=== PATIENT | male | born 1975 | race Caucasian/White ===

== ENCOUNTER 2016-08-08 16:45 | Outpatient (CLI) | payer BC ==
[~2016-08-08 16:45] MED LIST: LISI40TA PO; MECL25TA56 PO
== END 2016-08-08 17:25 | disposition home or self-care (01) ==
LOC: SLEEP 16:45
PROVIDERS: ATTEND Nurse Practitioner Family
DX: R06.83 Snoring (principal); G47.36 Sleep related hypoventilation in conditions classified elsewhere; I10 Essential (primary) hypertension

== ENCOUNTER → 2017-12-26 | Outpatient (CLI) | payer BC ==
--- NOTE | 2017-12-26 13:03 | Diagnostic Imaging Report ---
INDICATION: Increasing left knee pain. TIME OF EXAM: 9:37 AM FINDINGS: Three views of the left knee demonstrate tricompartmental degenerative change. There is marginal spurring present. Joint spaces are fairly well maintained. No fracture, dislocation or effusion is seen. There are postop changes with surgical farshad in the proximal tibia. IMPRESSION: Postop changes of ACL repair. There are degenerative changes of the left knee. No acute bony abnormality is detected. Dictated by: Dictated on workstation # [id number]
== END ==
LOC: RAD 09:04
PROVIDERS: ATTEND Nurse Practitioner Family
DX: M17.12 Unilateral primary osteoarthritis, left knee (principal); Z98.890 Other specified postprocedural states
CPT/HCPCS: 73562

== ENCOUNTER 2019-08-04 15:23 | Emergency (ER) | payer OTHER, BC ==
[~2019-08-04] VITALS: Ht 172.7 cm; Wt 158.7 kg
--- NOTE | 2019-08-04 15:28 | ED Upper Extremity ---
General Stated Complaint: R BICEP INJ Source: patient Exam Limitations: no limitations History of Present Illness Date Seen by Provider: August 04, 2019 Time Seen by Provider: 15:26 Initial Comments To ER with pain over the distal biceps on the right. 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 Onset: this morning Severity: moderate Pain/Injury Location: right arm Method of Injury: other (lifting) Modifying Factors: Worse With Movement Allergies and Home Medications Allergies Coded Allergies: No Known Drug Allergies (Unverified , 09/19/09) Home Medications Lisinopril 40 Mg Tablet, 40 MG PO DAILY, (Reported) Meclizine Hcl 25 Mg Tablet, 1 EACH PO QID PRN Prescribed by: SCOTT CALLOWAY on 09/20/09 0136 Patient Home Medication List Home Medication List Reviewed: Yes Review of Systems Constitutional: see HPI EENTM: see HPI Respiratory: no symptoms reported Cardiovascular: no symptoms reported Genitourinary: no symptoms reported Musculoskeletal: see HPI Skin: no symptoms reported Psychiatric/Neurological: No Symptoms Reported Past [id number]-Czxzka Hx Patient Social History Recent Foreign Travel: No Contact w/Someone Who Travel: No Physical Exam Vital Signs Capillary Refill : Height, Weight, BMI Height: '" Weight: lbs. oz. kg; BMI Method: General Appearance: WD/WN, no apparent distress Respiratory: no respiratory distress, no accessory muscle use Shoulder: normal inspection Elbow/Forearm: normal inspection, non-tender, pain (tender to palpation over the distal biceps tendon, pain with resisted flexion at the elbow.) Wrist: Yes non-tender Neurologic/Tendon: normal sensation Neurologic/Psychiatric: alert, normal mood/affect, oriented x 3 Skin: normal color, warm/dry Departure Impression Primary Impression: Biceps tendon tear Disposition: HOME, SELF-CARE Condition: Stable Departure-Patient Inst. Decision time for Depature: 15:27 Referrals: YAMILKA DALY DO (PCP/Family) Primary Care Physician Patient Instructions: Biceps Tendon Rupture (DC), Biceps Tendinopathy Add. Discharge Instructions: 1. Follow-up with Dr. DALY. Call tomorrow to make an appointment to be seen, wear the sling in the meantime, discuss obtaining an MRI of the upper extremity with Dr. Daly. JENIFER JC APRN August 04, 2019 15:28
--- OUTSIDE RECORDS SUMMARY | 2019-08-04 15:30 | XMS REPORT | CCD ---
Author Author Kaushal Danielle D.O. Organization [facility] Address [address] [place] [address] Phone Care Team Providers Care Operator Automated Process Name Role Phone [facility]ure Danielle D.O., PP Unavailable CCM Unavailable Summary Purpose Interface Exchange Insurance Providers Payer name Policy type / Coverage type Covered green party ID Effective Begin Date Effective End Date Blue Cross Blue Shield Blue Cross/Blue Shield [id number] Unknown Family history Father Diagnosis Age At Onset Diabetes Unknown Brother Diagnosis Age At Onset No Family Disease Entered N/A Mother Diagnosis Age At Onset No Family Disease Entered N/A Social History Social History Element Codes Description Effective Dates Tobacco history SNOMED CT: [id number] Has never smoked or chewed tobacco 07/25/2012 Allergies, Adverse Reactions, Alerts Substance Reaction Codes Entered Date Inactivated Date Status * NO KNOWN ENVIRONMENTAL ALLERGIES Unknown 05/19/2010 N o Inactive Date Active * NO KNOWN DRUG ALLERGIES Unknown 07/27/2009 No Inactiv e Date Active * NO KNOWN FOOD ALLERGIES Unknown 05/19/2010 No Inactiv e Date Active Problems Condition Codes Effective Dates Condition Status Essential (primary) hypertension ICD-9: 401.9 ICD-10: I10 06/27/2019 Active Hyperglycemia, unspecified ICD-9: 790.29 ICD-10: R73.9 12/26/2017 Active Mixed hyperlipidemia ICD-9: 272.2 ICD-10: E78.2 06/27/2019 Active Cellulitis of left lower limb ICD-9: 682.7 ICD-10: L03.116 08/16/2018 Active Methicillin resistant Staphylococcus aureus infection, unspecified site ICD-9: 041.12 ICD-10: A49.02 08/16/2018 Active Cellulitis of left lower limb ICD-9: 682.6 ICD-10: L03.116 08/07/2018 Active Tinea pedis ICD-9: 110.4 ICD-10: B35.3 08/07/2018 Active Mixed hyperlipidemia ICD-9: 272.4 ICD-10: E78.2 12/26/2017 Active Other hyperlipidemia ICD-9: 272.4 ICD-10: E78.49 12/26/2017 Active Pain in left knee ICD-9: 719.46 ICD-10: M25.562 04/13/2017 Active Encounter for general adult medical examination withou t abnormal findings ICD-9: V70.9 ICD-10: Z00.00 04/13/2017 Active FLU VACCINE ICD-9: V04.81 ICD-10: Z23 04/13/2017 Active Obstructive sleep apnea (adult) (pediatric) ICD-9: 327 .23 ICD-10: G47.33 04/13/2017 Active Abnormal weight gain ICD-9: 783.1 ICD-10: R63.5 08/05/2016 Active Sleep apnea, unspecified ICD-9: 780.57 ICD-10: G47.30 08/05/2016 Active Pain in right knee ICD-9: 719.46 ICD-10: M25.561 11/22/2015 Active Acute upper respiratory infection, unspecified ICD-9: 465.9 ICD-10: J06.9 02/14/2016 Active Unspecified contact dermatitis, unspecified cause ICD- 9: 692.9 ICD-10: L25.9 11/03/2015 Active Encounter for other general examination ICD-9: V70.8 ICD-10: Z00.8 08/26/2015 Active DERMATITIS NOS ICD-9: 692.9 10/14/2014 Active FOLLICULITIS ICD-9: 704.8 10/13/2014 Active PAIN, LOWER BACK ICD-9: 724.2 09/03/2014 Active ROUTINE MEDICAL EXAM ICD-9: V70.0 09/03/2014 Active SPASM OF MUSCLE ICD-9: 728.85 12/21/2011 Active COUGH ICD-9: 786.2 07/25/2013 Active SINUSITIS, ACUTE ICD-9: 461.9 07/25/2013 Active WHEEZING ICD-9: 786.07 07/25/2013 Active BRONCHITIS, ACUTE ICD-9: 466.0 01/21/2013 Active Hyperlipidemia ICD-9: 272.4 07/25/2012 Active Foot pain ICD-9: 729.5 01/31/2012 Active LYMPHADENOPATHY ICD-9: 785.6 01/31/2012 Active CERVICALGIA ICD-9: 723.1 12/21/2011 Active ACUTE PAIN NEC ICD-9: 338.19 09/26/2011 Active PHARYNGITIS, ACUTE ICD-9: 462 05/12/2011 Active Thoracic back pain ICD-9: 724.1 02/09/2011 Active Elevated liver enzymes ICD-9: 790.4 08/24/2010 Active Plantar fasciitis ICD-9: 728.71 05/19/2010 Active Tinea pedis ICD-9: 110.4 03/01/2010 Active Tinea versicolor ICD-9: 111.0 10/26/2009 Active DIZZINESS/VERTIGO ICD-9: 780.4 09/22/2009 Active LABYRINTHITIS ICD-9: 386.30 09/22/2009 Active Chronic Back Pain Unknown 07/27/2009 Active Hypertension Unknown 07/27/2009 Active HYPERTENSION ICD-9: 401.9 07/27/2009 Active Medications Medication Codes Instructions Start Date Stop Date Status Fill Instructions lisinopril 20 mg tablet RxNorm: 363797 TAKE ONE TABLET BY MOUTH DAILY 06/27/2019 No Stop Date Active meloxicam 15 mg tablet RxNorm: 968360 1 Tablet(s) Oral QAM 01/25/20 19 04/24/2019 Inactive meloxicam 15 mg tablet RxNorm: 415481 1 Tablet(s) PO QAM 10/05/2018 1 Inactive lisinopril 20 mg tablet RxNorm: 770888 TAKE ONE TABLET BY MOUTH DAILY 09/20/2018 03/18/2019 Inactive dapsone 100 mg tablet RxNorm: 880202 1 Tablet(s) PO QD 08/09/201802/2019 Inactive nystatin-triamcinolone 100,000 unit/g-0.1 % topical cream Rx Norm: 3512865 1 Application TOP BID 08/07/2018 08/20/2018 Inactive Diflucan 150 mg tablet RxNorm: 827748 1 Tablet(s) PO QD 08/07/2018 Inactive Bactrim DS 800 mg-160 mg tablet RxNorm: 799942 1 Tablet(s) PO BID 0 08/07/2018 08/16/2018 Inactive meloxicam 15 mg tablet RxNorm: 456897 1 Tablet(s) PO QAM 06/20/2018 0 09/17/2018 Inactive lisinopril 20 mg tablet RxNorm: 461751 TAKE ONE TABLET BY MOUTH DAILY 06/20/2018 06/19/2018 Inactive meloxicam 15 mg tablet RxNorm: 126037 1 Tablet(s) PO QAM 06/20/2018 0 09/17/2018 Inactive lisinopril 20 mg tablet RxNorm: 989554 1 Tablet(s) PO QD 06/20/2018 0 09/17/2018 Inactive meloxicam 15 mg tablet RxNorm: 916679 1 Tablet(s) PO QAM 05/02/2018 0 06/19/2018 Inactive meloxicam 15 mg tablet RxNorm: 265362 1 Tablet(s) PO QAM 04/30/2018 0 06/19/2018 Inactive cyclobenzaprine 10 mg tablet RxNorm: 837688 1/2 -1 Tabl et(s) PO QHS as needed for muscle spasm 04/11/2018 No Stop Date Active Medrol (Nico) 4 mg tablets in a dose pack RxNorm: 818933 Tablet(s) PO take as directed 04/11/2018 08/06/2018 Inactive Medrol (Nico) 4 mg tablets in a dose pack RxNorm: 294517 Tablet(s) PO take as directed 12/26/2017 04/10/2018 Inactive lisinopril 20 mg tablet RxNorm: 890551 TAKE ONE TABLET BY MOUTH DAILY 12/12/2017 06/09/2018 Inactive meloxicam 15 mg tablet RxNorm: 546274 1 Tablet(s) PO QAM 10/12/2017 0 04/09/2018 Inactive meloxicam 15 mg tablet RxNorm: 481904 Tablet(s) TAKE ON E TABLET BY MOUTH EVERY MORNING 04/13/2017 10/09/2017 Inactive lisinopril 20 mg tablet RxNorm: 511471 1 Tablet(s) PO QD 12/08/2016 0 12/02/2017 Inactive meloxicam 15 mg tablet RxNorm: 618723 Tablet(s) TAKE ON E TABLET BY MOUTH EVERY MORNING 08/05/2016 01/31/2017 Inactive meloxicam 15 mg tablet RxNorm: 785854 Tablet(s) TAKE ON E TABLET BY MOUTH EVERY MORNING 07/12/2016 08/04/2016 Inactive meloxicam 15 mg tablet RxNorm: 323462 TAKE ONE TABLET BY MOUTH EVERY MORNING 06/16/2016 07/11/2016 Inactive Medrol (Nico) 4 mg tablets in a dose pack RxNorm: 396915 Take as directed 06/15/2016 08/04/2016 Inactive amoxicillin 875 mg tablet RxNorm: 230954 1 Tablet(s) PO BID 016 02/24/2016 Inactive Pepcid 20 mg tablet RxNorm: 547898 TAKE ONE TABLET BY MOUTH MARTHA RY MORNING 12/21/2015 04/12/2017 Inactive meloxicam 15 mg tablet RxNorm: 170771 1 Tablet(s) PO QAM 11/23/2015 1 Inactive Pepcid 20 mg tablet RxNorm: 780421 1 Tablet(s) PO QAM 11/23/201512/04 Inactive triamcinolone acetonide 0.1 % topical cream RxNorm: 7014048 Apply topically to affected areas(ankles) 3-4 times daily as needed 11/03/2015 12/25/2017 Inactive Naftin 2 % topical cream RxNorm: 3993648 Apply topically to affected areas(bilateral feet) once daily for 2 weeks 11/03/2015 12/25/2017 Yoanna ctive lisinopril 20 mg tablet RxNorm: 476965 1 Tablet(s) PO QD 11/03/2015 0 10/27/2016 Inactive lisinopril 20 mg tablet RxNorm: 768823 1 Tablet(s) PO QD 10/28/2015 0 11/02/2015 Inactive lisinopril 20 mg tablet RxNorm: 235157 1 Tablet(s) PO Q D Needs appointment before next refill 07/28/2015 08/26/2015 Inactive lisinopril 20 mg tablet RxNorm: 012488 1 Tablet(s) PO Q D Needs appointment before next refill 07/22/2015 07/28/2015 Inactive lisinopril 20 mg tablet RxNorm: 653471 TAKE ONE TABLET BY MOUTH DAILY 04/24/2015 07/22/2015 Inactive Medrol (Nico) 4 mg tablets in a dose pack RxNorm: 292434 Tablet(s) PO QD --then as directed 02/23/2015 02/28/2015 Inactive Ultram 50 mg tablet RxNorm: 807928 1 - 2 Tablet(s) PO T ID as needed as needed for pain 02/23/2015 08/26/2015 Inactive Medrol (Nico) 4 mg tablets in a dose pack RxNorm: 004807 6 Tablet(s) PO QD --then as directed 10/14/2014 10/19/2014 Inactive lisinopril 20 mg tablet RxNorm: 630720 1 Tablet(s) PO Q D TAKE ONE TABLET BY MOUTH ONE TIME A DAY 10/14/2014 04/11/2015 Inactive Bactrim DS 800 mg-160 mg tablet RxNorm: 683052 1 Tablet(s) PO BID 0 10/14/2014 10/23/2014 Inactive lisinopril 20 mg tablet RxNorm: 731177 1 Tablet(s) PO Q D TAKE ONE TABLET BY MOUTH ONE TIME A DAY 10/13/2014 10/13/2014 Inactive Zorvolex 35 mg capsule RxNorm: 5891083 1 Capsule(s) PO TID 09/04/19 15 08/26/2015 Inactive Ultram 50 mg tablet RxNorm: 739634 1 - 2 Tablet(s) PO T ID as needed as needed for pain 09/03/2014 02/22/2015 Inactive Flexeril 10 mg tablet RxNorm: 538839 1 Tablet(s) PO TID prn spasm 0 09/03/2014 08/26/2015 Inactive lisinopril 20 mg tablet RxNorm: 709183 1 Tablet(s) PO Q D TAKE ONE TABLET BY MOUTH ONE TIME A DAY 04/21/2014 10/13/2014 Inactive lisinopril 20 mg tablet RxNorm: 612190 1 Tablet(s) PO Q D TAKE ONE TABLET BY MOUTH EVERY DAY 10/21/2013 04/21/2014 Inactive cefdinir 300 mg capsule RxNorm: 017520 2 Capsule(s) PO QD 07/25/2013 08/03/2013 Inactive prednisone 20 mg tablet RxNorm: 379583 1 Tablet(s) PO BID 07/25/2013 07/31/2013 Inactive lisinopril 20 mg tablet RxNorm: 972961 1 Tablet(s) PO T TAMARA ONE TABLET BY MOUTH EVERY DAY 04/12/2013 10/20/2013 Inactive doxycycline hyclate 100 mg tablet RxNorm: 7672571 1 Tablet(s) PO BI D 01/21/2013 01/30/2013 Inactive albuterol sulfate 2.5 mg/3 mL (0.083 %) solution for n ebulization RxNorm: 081884 3 Milliliter(s) INH QID 01/21/2013 01/30/2013 Inactive lisinopril 20 mg tablet RxNorm: 136950 1 Tablet(s) PO QD 07/09/2012 0 04/12/2013 Inactive metformin ER 500 mg 24 hr tablet,extended release RxNorm: 86 0975 1 Tablet(s) PO QD 02/02/2012 07/24/2012 Inactive metformin ER 500 mg 24 hr tablet,extended release RxNorm: 86 1018 1 Tablet(s) PO QD 02/02/2012 02/01/2012 Inactive Lamisil 250 mg tablet RxNorm: 130716 1 Tablet(s) PO QD 02/02/2012 Inactive Lamisil 250 mg tablet RxNorm: 671032 1 Tablet(s) PO QD 02/02/2012 Inactive Flexeril 10 mg tablet RxNorm: 635972 1 Tablet(s) PO TID prn spasm 1 03/24/2011 07/24/2012 Inactive Ultram 50 mg tablet RxNorm: 547339 1-2 Tablet(s) PO TID as need ed for pain 01/23/2012 07/24/2012 Inactive lisinopril 20 mg tablet RxNorm: 787529 1 Tablet(s) PO QD 09/26/2011 0 06/21/2012 Inactive lisinopril 20 mg Tab RxNorm: 369805 1 Tablet(s) PO QD 06/27/201109/04 Inactive doxycycline hyclate 100 mg tablet RxNorm: 7924410 1 Tablet(s) PO BI D 05/12/2011 05/21/2011 Inactive lisinopril 20 mg Tab RxNorm: 253884 1 Tablet(s) PO QD 12/02/201005/05 Inactive cefdinir 300 mg Cap RxNorm: 605330 2 Capsule(s) PO QD 06/21/201003/2010 Inactive Flexeril 10 mg tablet RxNorm: 260486 1 Tablet(s) PO TID prn spasm 0 05/19/2010 06/01/2010 Inactive lisinopril 20 mg Tab RxNorm: 706397 1 Tablet(s) PO QD 03/01/201008/05 Inactive lisinopril 20 mg Tab RxNorm: 279793 1 Tablet(s) PO QD 10/26/200901/05 Inactive Ketoconazole 200 mg Tab RxNorm: 837006 1 Tablet(s) PO BID 10/26/2009 11/22/2009 Inactive Lisinopril 20 mg Tab RxNorm: 136880 1 Tablet(s) PO QD 10/26/200910/05 Inactive Prednisone 20 mg Tab RxNorm: 913119 1 Tablet(s) PO BID 09/22/2009 Inactive Flexeril 10 mg Tab RxNorm: 511502 1 Tablet(s) PO QHS prn spasm 07/0509/24/2009 Inactive Lisinopril 40 mg Tab RxNorm: 570299 1 Tablet(s) PO QD 07/27/200910/05 Inactive Ibuprofen 200 mg Tab RxNorm: 511063 1-2 Tablet(s) PO PRN No Start D ate 02/08/2011 Inactive Ibuprofen 200 mg Tab RxNorm: 20100411 Tablet(s) PO PRN No Start Date Inactive Medrol (Nico) 4 mg Tabs in a Dose Pack RxNorm: 130134 Tablet(s) PO as directed No Start Date 12/20/2011 Inactive Medrol (Nico) 4 mg tablets in a dose pack RxNorm: 874087 Tablet(s) PO take as directed No Start Date 12/25/2017 Inactive Glucos Chond Cplx Advanced Oral RxNorm: Oral No Start Date 10/05 Inactive Ultram 50 mg tablet RxNorm: 208268 1-2 Tablet(s) PO TID as need ed for pain No Start Date 01/22/2012 Inactive cyclobenzaprine 10 mg tablet RxNorm: 709520 1/2 -1 Tabl et(s) PO QHS as needed for muscle spasm No Start Date 04/10/2018 Inactive Medrol (Nico) 4 mg tablets in a dose pack RxNorm: 697862 Tablet(s) PO take as directed No Start Date 04/10/2018 Inactive Lisinopril 40 mg Tab RxNorm: 399847 1 Tablet(s) PO QD No Start Date 0 07/26/2009 Inactive Lisinopril 40 mg Tab RxNorm: 750982 1/2 Tablet(s) PO QD No Start Da te 10/25/2009 Inactive Restoril 15 mg capsule RxNorm: 346231 1 Capsule(s) PO QHS No Start Date 04/12/2017 Inactive Medication Administered No Medication Administered data Immunizations Vaccine Codes Date Status Influenza CVX: 141 04/13/2017 Complete Influenza (Adult) CVX: 141 12/31/2009 Results Observation Observation Code Item Item Code Result Date S ervice Location THYROID STIMULATING HORMONE 77912 TSH 2.639 uIU/mL 08/07/2018 Unknown [facility] 14414 Cholesterol 200 mg/dL 08/07/2018 Unkno wn [facility] 02396 Triglyceride 110 mg/dL 08/07/2018 Unkn own [facility] 56415 HDL CHOLESTEROL 38 mg/dL 08/07/2018 U nknown [facility] 88978 Chol/HDL Ratio 5.26 ratio 08/07/2018 U nknown [facility] 27946 NON-HDL Chol 162 mg/dL 08/07/2018 Unkn own [facility] 96049 LDL Cholesterol 140 mg/dL 08/07/2018 U nknown COMPREHENSIVE METABOLIC 42228 AST 22 U/L 2018 Unknown COMPREHENSIVE METABOLIC 69833 ALT 34 U/L 2018 Unknown [facility] 54918 BUN 11 mg/dL 2018 Unknown [facility] 09978 ALBUMIN 4.3 g/dL 2018 Unknown [facility] MET[facility]OLIC 89751 CHLORIDE 104 mmol/L 08/07 Unknown COMPREHENSIVE METABOLIC 73806 Bili Total 1.0 mg/dL 08/07 Unknown COMPREHENSIVE METABOLIC 86563 ALK PHOS 57 U/L 2018 Unknown COMPREHENSIVE METABOLIC 95074 SODIUM 139 mmol/L 08/07 Unknown COMPREHENSIVE METABOLIC 29644 CREATININE 0.98 mg/dL 06/2018 Unknown COMPREHENSIVE METABOLIC 25248 CALCIUM 9.1 mg/dL 2018 Unknown COMPREHENSIVE METABOLIC 07463 POTASSIUM 4.0 mmol/L 08/07 Unknown COMPREHENSIVE METABOLIC 73404 Total Protein 6.8 g/dL Unknown COMPREHENS[facility] METABOLIC 49141 Glucose 114 mg/dL 2018 Unknown COMPREHENSIVE METABOLIC 59335 Bicarbonate 27 mmol/L 06/2018 Unknown COMPREHENSIVE METABOLIC 42845 AGAP 8 mmol/L 2018 Unknown MEAN GLUC 9570347 Calc Mean Gluc 117 mg/dL 08/07/2018 Unkn own GFR CALC [id number] GFR Non Afr Amr >60 mL/min 08/07/2018 Un known GFR CALC [id number] GFR Afr Amr >60 mL/min 08/07/2018 Unknow n COMPLETE BLOOD COUNT [id number] WBC 9.1 10e9/L 08/08/19 19 Unknown COMPLETE BLOOD COUNT [id number] RBC 4.91 10e12/L 2018 Unknown COMPLETE BLOOD COUNT [id number] HEMOGLOBIN 15.2 g/dL 08/08/19 19 Unknown COMPLETE BLOOD COUNT [id number] HEMATOCRIT 45.1 % 08/08/19 19 Unknown COMPLETE BLOOD COUNT [id number] MCV 91.9 fL 9 Unknown COMPLETE BLOOD COUNT [id number] MCH 31.0 pg 9 Unknown COMPLETE BLOOD COUNT [id number] MCHC 33.7 g/dL 9 Unknown COMPLETE BLOOD COUNT [id number] PLATELET COUNT 217 10e9/L 06/2018 Unknown COMPLETE BLOOD COUNT [id number] Mean Plt Volume 10.5 fL 06/2018 Unknown COMPLETE BLOOD COUNT [id number] Neut Auto 63.4 % 9 Unknown COMPLETE BLOOD COUNT [id number] Lymph Auto 25.4 % 08/08/19 19 Unknown COMPLETE BLOOD COUNT [id number] Bond Auto 9.4 % 9 Unknown COMPLETE BLOOD COUNT 1979499 RDW 12.8 % 9 Unknown COMPLETE BLOOD COUNT 1489902 Eos Auto 1.5 % 9 Unknown COMPLETE BLOOD COUNT [id number] Baso Auto 0.3 % 9 Unknown COMPLETE BLOOD COUNT [id number] Neutrophil Abs 5.77 10e9/L Unknown COMPLETE BLOOD COUNT [id number] Lymphocyte Abs 2.31 10e9/L Unknown COMPLETE BLOOD COUNT [id number] Monocyte Abs 0.86 10e9/L 06/2018 Unknown COMPLETE BLOOD COUNT [id number] Eosinophil Abs 0.14 10e9/L Unknown COMPLETE BLOOD COUNT [id number] RDW-SD 41.9 fL 9 Unknown COMPLETE BLOOD COUNT [id number] Basophil Abs 0.03 10e9/L 06/0 06/2018 Unknown GLYCOSYLATED HEMOGLOBIN TEST 63638 Hgb A1c 12425-2 5.7 % 0 08/07/2018 Unknown COMPLETE BLOOD COUNT [id number] WBC 8.4 10e9/L 01/31/20 12 Unknown COMPLETE BLOOD COUNT [id number] RBC 4.91 10e12/L 2011 Unknown COMPLETE BLOOD COUNT [id number] HGB 15.6 g/dL 2 Unknown COMPLETE BLOOD COUNT [id number] HCT DET 44.2 % 2 Unknown COMPLETE BLOOD COUNT [id number] MCV 90.0 fL 2 Unknown COMPLETE BLOOD COUNT 0123466 MCH 31.8 pg 2 Unknown COMPLETE BLOOD COUNT [id number] MCHC 35.3 g/dL 2 Unknown COMPLETE BLOOD COUNT 4231979 PLT 231 10e9/L 01/31/20 12 Unknown COMPLETE BLOOD COUNT 1451017 MPV 10.2 fL 2 Unknown COMPLETE BLOOD COUNT [id number] RENY % 60.9 % 2 Unknown COMPLETE BLOOD COUNT 7996394 LY % 26.5 % 2 Unknown COMPLETE BLOOD COUNT [id number] MON % 10.7 % 2 Unknown COMPLETE BLOOD COUNT 7249457 EOS % 1.5 % 2 Unknown COMPLETE BLOOD COUNT 3375108 BASO % 0.4 % 2 Unknown COMPLETE BLOOD COUNT [id number] RDW 12.5 % 2 Unknown COMPLETE BLOOD COUNT [id number] ABS RENY 5.12 10e9/L 012 Unknown COMPLETE BLOOD COUNT [id number] ABS LYMPH 2.23 10e9/L 012 Unknown COMPLETE BLOOD COUNT [id number] ABS MONO 0.90 10e9/L 012 Unknown COMPLETE BLOOD COUNT [id number] ABS EOS 0.13 10e9/L 012 Unknown COMPLETE BLOOD COUNT [id number] ABS BASO 0.03 10e9/L 012 Unknown COMPLETE BLOOD COUNT [id number] RDW-SD 40.5 fL 2 Unknown COMPREHENSIVE METABOLIC 09297 AST 31 U/L 2011 Unknown COMPREHENSIVE METABOLIC 24544 ALT 60 IU/L 2011 Unknown COMPREHENSIVE METABOLIC 80739 BUN 14 MG/DL 2011 Unknown COMPREHENSIVE METABOLIC 04758 ALBUMIN 4.1 GM/DL 2011 Unknown COMPREHENSIVE METABOLIC 26276 CHLORIDE 101 MMOL/L 01/30 Unknown COMPREHENSIVE METABOLIC 61153 BILI TOT 0.8 MG/DL 2011 Unknown COMPREHENSIVE METABOLIC 90831 ALK PHOS 60 U/L 2011 Unknown COMPREHENSIVE METABOLIC 98964 SODIUM 138 MMOL/L 01/30 Unknown COMPREHENSIVE METABOLIC 00045 CREATININE 0.99 MG/DL 01/05 Unknown COMPREHENSIVE METABOLIC 19669 CALCIUM 9.3 MG/DL 2011 Unknown COMPREHENSIVE METABOLIC 60115 POTASSIUM 3.8 MMOL/L 01/30 Unknown COMPREHENSIVE METABOLIC 34936 PROT TOT 6.5 GM/DL 2011 Unknown COMPREHENSIVE METABOLIC 83514 Glucose 108 MG/DL 2011 Unknown COMPREHENSIVE METABOLIC 52544 BICARB 29 MMOL/L 2011 Unknown COMPREHENSIVE METABOLIC 88106 ANION GAP 8 MEQ/L 2011 Unknown URIC ACID 07196 URIC ACID 7.7 MG/DL 01/31/2012 Unknown [facility] 51652 HDL TEST 30 MG/DL 01/31/2012 Unknown [facility] 21438 TRIG 199 MG/DL 01/31/2012 Unknown [facility] 77937 TEST LDL 125 MG/DL 01/31/2012 Unknown [facility] 08034 CHOL 195 MG/DL 01/31/2012 Unknown [facility] 12278 RCHOL/HDL 6.50 RATIO 01/31/2012 Unknow n GFR CALC 3685046 GFR AA >60 ML/MIN 01/31/2012 Unknown GFR CALC 6534029 GFR NON-AA >60 ML/MIN 01/31/2012 Unknown ERYTHROCYTE SEDIMENTATION RATE 24913 ESR 25 MM/HR 01/31/2012 Unknown T4 (THYROXINE) 47213 T4 9.5 UG/DL 02/24/2011 Unkn own COMPLETE BLOOD COUNT 24880 WBC 9.5 10e9/L 02/25/20 11 Unknown COMPLETE BLOOD COUNT 45819 RBC 4.71 10e12/L 2010 Unknown COMPLETE BLOOD COUNT 57549 HGB 14.5 g/dL 1 Unknown COMPLETE BLOOD COUNT 67215 HCT DET 42.2 % 1 Unknown COMPLETE BLOOD COUNT 71411 MCV 89.6 fL 1 Unknown COMPLETE BLOOD COUNT 03150 MCH 30.8 pg 1 Unknown COMPLETE BLOOD COUNT 00291 MCHC 34.4 g/dL 1 Unknown COMPLETE BLOOD COUNT 61559 PLT 193 10e9/L 02/25/20 11 Unknown COMPLETE BLOOD COUNT 13144 MPV 10.7 fL 1 Unknown COMPLETE BLOOD COUNT 79157 RENY % 58.7 % 1 Unknown COMPLETE BLOOD COUNT 40650 LY % 29.0 % 1 Unknown COMPLETE BLOOD COUNT 03937 MON % 10.0 % 1 Unknown COMPLETE BLOOD COUNT 11333 EOS % 1.6 % 1 Unknown COMPLETE BLOOD COUNT 28251 BASO % 0.7 % 1 Unknown COMPLETE BLOOD COUNT 73506 SCAN REVW FOOTNOTE 1 Unknown COMPLETE BLOOD COUNT 57652 RDW 12.5 % 1 Unknown COMPLETE BLOOD COUNT 22476 ABS RENY 5.55 10e9/L 011 Unknown COMPLETE BLOOD COUNT 93233 ABS LYMPH 2.74 10e9/L 011 Unknown COMPLETE BLOOD COUNT 33511 ABS MONO 0.95 10e9/L 011 Unknown COMPLETE BLOOD COUNT 54002 ABS EOS 0.15 10e9/L 011 Unknown COMPLETE BLOOD COUNT 88233 ABS BASO 0.07 10e9/L 011 Unknown COMPLETE BLOOD COUNT 43627 RDW-SD 40.5 fL 1 Unknown [facility] 48809 HDL TEST 34 MG/DL 02/24/2011 Unknown [facility] 37324 TRIG 95 MG/DL 02/24/2011 Unknown [facility] 72498 TEST LDL 95 MG/DL 02/24/2011 Unknown [facility] 66515 CHOL 148 MG/DL 02/24/2011 Unknown [facility] 02542 RCHOL/HDL 4.35 RATIO 02/24/2011 Unknow n COMPREHENSIVE METABOLIC 79522 AST 33 U/L 2010 Unknown COMPREHENSIVE METABOLIC 85933 ALT 64 IU/L 2010 Unknown COMPREHENSIVE METABOLIC 59346 BUN 10 MG/DL 2010 Unknown COMPREHENSIVE METABOLIC 76588 ALBUMIN 3.9 GM/DL 2010 Unknown COMPREHENSIVE METABOLIC 95493 CHLORIDE 105 MMOL/L 02/24 Unknown COMPREHENSIVE METABOLIC 49442 BILI TOT 0.6 MG/DL 2010 Unknown COMPREHENSIVE METABOLIC 91850 ALK PHOS 56 U/L 2010 Unknown COMPREHENSIVE METABOLIC 18170 SODIUM 140 MMOL/L 02/24 Unknown COMPREHENSIVE METABOLIC 05770 CREATININE 0.98 MG/DL 02/04 Unknown COMPREHENSIVE METABOLIC 42807 CALCIUM 8.9 MG/DL 2010 Unknown COMPREHENSIVE METABOLIC 12234 POTASSIUM 3.8 MMOL/L 02/24 Unknown COMPREHENSIVE METABOLIC 69304 PROT TOT 6.7 GM/DL 2010 Unknown COMPREHENSIVE METABOLIC 26042 Glucose 109 MG/DL 2010 Unknown COMPREHENSIVE METABOLIC 43018 BICARB 30 MMOL/L 2010 Unknown COMPREHENSIVE METABOLIC 89211 ANION GAP 5 MEQ/L 2010 Unknown THYROID STIMULATING HORMONE 64023 TSH 1.692 uIU/ML 02/24/2011 Unknown GFR CALC 3506778 GFR AA >60 ML/MIN 02/24/2011 Unknown GFR CALC 9219112 GFR NON-AA >60 ML/MIN 02/24/2011 Unknown HEPATIC FUNCTION PANEL A 92590 AST 25 U/L 08/24 Unknown HEPATIC FUNCTION PANEL A 26665 ALK PHOS 55 U/L 08/24 Unknown HEPATIC FUNCTION PANEL A 31007 BILI TOT 1.0 MG/DL 08/24 Unknown HEPATIC FUNCTION PANEL A 65374 ALT 60 IU/L 08/24 Unknown HEPATIC FUNCTION PANEL A 76273 BILI DIR 0.2 MG/DL 08/24 Unknown HEPATIC FUNCTION PANEL A 36034 ALBUMIN 4.4 GM/DL 08/24 Unknown HEPATIC FUNCTION PANEL A 22355 PROT TOT 7.0 GM/DL 08/24 Unknown VIRAL HEPATITIS PROFILE #2 54341 HEP AG BS NR Unknown VIRAL HEPATITIS PROFILE #2 33901 HEP C AB NR Unknown VIRAL HEPATITIS PROFILE #2 31189 HEP A M AB NR Unknown VIRAL HEPATITIS PROFILE #2 36249 HBC M AB NR Unknown THYROID STIMULATING HORMONE 95289 TSH 3.554 uIU/ML 03/02/2010 Unknown [facility] 65999 HDL TEST 44 MG/DL 03/02/2010 Unknown [facility] 27908 TRIG 141 MG/DL 03/02/2010 Unknown [facility] 14618 TEST LDL 136 MG/DL 03/02/2010 Unknown [facility] 14059 CHOL 208 MG/DL 03/02/2010 Unknown [facility] 27363 RCHOL/HDL 4.73 RATIO 03/02/2010 Unknow n COMPLETE BLOOD COUNT 21422 WBC 9.6 10e9/L 03/02/20 10 Unknown COMPLETE BLOOD COUNT 52118 RBC 5.01 10e12/L 2009 Unknown COMPLETE BLOOD COUNT 09780 HGB 15.3 g/dL 0 Unknown COMPLETE BLOOD COUNT 56840 HCT DET 45.5 % 0 Unknown COMPLETE BLOOD COUNT 19472 MCV 90.8 fL 0 Unknown COMPLETE BLOOD COUNT 77043 MCH 30.5 pg 0 Unknown COMPLETE BLOOD COUNT 14892 MCHC 33.6 g/dL 0 Unknown COMPLETE BLOOD COUNT 56435 PLT 193 10e9/L 03/02/20 10 Unknown COMPLETE BLOOD COUNT 35513 MPV 9.6 fL 0 Unknown COMPLETE BLOOD COUNT 93860 RENY % 59.0 % 0 Unknown COMPLETE BLOOD COUNT 33255 LY % 30.0 % 0 Unknown COMPLETE BLOOD COUNT 94365 MON % 9.5 % 0 Unknown COMPLETE BLOOD COUNT 11712 EOS % 1.3 % 0 Unknown COMPLETE BLOOD COUNT 07549 BASO % 0.2 % 0 Unknown COMPLETE BLOOD COUNT 01128 RDW 12.5 % 0 Unknown COMPLETE BLOOD COUNT 72459 ABS RENY 5.66 10e9/L 010 Unknown COMPLETE BLOOD COUNT 88297 ABS LYMPH 2.88 10e9/L 010 Unknown COMPLETE BLOOD COUNT 92459 ABS MONO 0.91 10e9/L 010 Unknown COMPLETE BLOOD COUNT 28791 ABS EOS 0.12 10e9/L 010 Unknown COMPLETE BLOOD COUNT 77555 ABS BASO 0.02 10e9/L 010 Unknown COMPLETE BLOOD COUNT 96778 RDW-SD 40.9 fL 0 Unknown GFR CALC [id number] GFR AA >60 ML/MIN 03/02/2010 Unknown GFR CALC [id number] GFR NON-AA >60 ML/MIN 03/02/2010 Unknown FREE T4 08432 FREE T4 1.14 NG/DL 03/02/2010 Unknown COMPREHENSIVE METABOLIC 39358 AST 31 U/L 2009 Unknown COMPREHENSIVE METABOLIC 44457 ALT 85 IU/L 2009 Unknown COMPREHENSIVE METABOLIC 58956 BUN 15 MG/DL 2009 Unknown COMPREHENSIVE METABOLIC 04321 ALBUMIN 4.0 GM/DL 2009 Unknown COMPREHENSIVE METABOLIC 85569 CHLORIDE 104 MMOL/L 03/02 Unknown COMPREHENSIVE METABOLIC 31665 BILI TOT 0.5 MG/DL 2009 Unknown COMPREHENSIVE METABOLIC 93955 ALK PHOS 64 U/L 2009 Unknown COMPREHENSIVE METABOLIC 67624 SODIUM 139 MMOL/L 03/02 Unknown COMPREHENSIVE METABOLIC 02350 CREATININE 0.94 MG/DL 02/04 Unknown COMPREHENSIVE METABOLIC 08660 CALCIUM 9.2 MG/DL 2009 Unknown COMPREHENSIVE METABOLIC 70005 POTASSIUM 3.9 MMOL/L 03/02 Unknown COMPREHENSIVE METABOLIC 24254 PROT TOT 6.8 GM/DL 2009 Unknown COMPREHENSIVE METABOLIC 86913 Glucose 102 MG/DL 2009 Unknown COMPREHENSIVE METABOLIC 19684 BICARB 28 MMOL/L 2009 Unknown COMPREHENSIVE METABOLIC 58065 ANION GAP 7 MEQ/L 2009 Unknown Procedures Procedure Codes Date AEROBIC WOUND CULTURE & STN CPT-4: 01964 08/09/2018 CEFTRIAXONE SODIUM INJECTION CPT-4: J0696 08/09/2018 THER/PROPH/DIAG INJ SC/IM CPT-4: 42964 08/09/2018 ROUTINE VENIPUNCTURE CPT-4: 60504 08/07/2018 COMPLETE CBC W/AUTO DIFF WBC CPT-4: 80546 08/07/2018 COMPREHEN METABOLIC PANEL CPT-4: 18790 08/07/2018 ASSAY THYROID STIM HORMONE CPT-4: 36684 08/07/2018 LIPID PANEL CPT-4: 17779 08/07/2018 A1C HPLC CPT-4: 63630 08/07/2018 ROUTINE VENIPUNCTURE CPT-4: 53838 12/26/2017 ASSAY THYROID STIM HORMONE CPT-4: 24040 12/26/2017 COMPREHEN METABOLIC PANEL CPT-4: 05920 12/26/2017 COMPLETE CBC W/AUTO DIFF WBC CPT-4: 23774 12/26/2017 LIPID PANEL CPT-4: 14097 12/26/2017 A1C HPLC CPT-4: 76106 12/26/2017 IIV4 VACCINE 3 YRS+ IM AND UP CPT-4: 77614 04/13/2017 IMMUNIZATION ADMIN CPT-4: 91540 04/13/2017 THER/PROPH/DIAG INJ SC/IM CPT-4: 53155 01/21/2013 METHYLPREDNISOLONE 40 MG INJ CPT-4: J1030 01/21/2013 TRIAMCINOLONE ACET INJ NOS CPT-4: J3301 01/21/2013 URINALYSIS NONAUTO W/O SCOPE CPT-4: 32039 01/31/2012 ROUTINE VENIPUNCTURE CPT-4: 43744 01/31/2012 COMPREHEN METABOLIC PANEL CPT-4: 21705 01/31/2012 COMPLETE CBC W/AUTO DIFF WBC CPT-4: 76753 01/31/2012 RBC SED RATE AUTOMATED CPT-4: 65258 01/31/2012 LIPID PANEL CPT-4: 52336 01/31/2012 ASSAY OF BLOOD/URIC ACID CPT-4: 83485 01/31/2012 ROUTINE VENIPUNCTURE CPT-4: 56204 08/24/2010 HEPATIC FUNCTION PANEL CPT-4: 33127 08/24/2010 C FUNGUS CPT-4: 9154387 03/01/2010 FLU VACCINE 3 YRS & > IM UP 64 CPT-4: 78969 0 IMMUNIZATION ADMIN CPT-4: 38516 12/31/2009 Vital Signs Date Vital 08/16/2018 Blood Pressure 1: 110/85 Code: 8480-6 Heart Rate 1: 55 bpm Respiratory Rate: 20 bpm 08/09/2018 Blood Pressure 1: 150/100 Code: 8480-6 Heart Rat e 1: 71 bpm Respiratory Rate: 20 bpm SpO2: 95% Temperature: 36.3 (C) / 97.3 (F) 08/07/2018 Blood Pressure 1: 150/96 Code: 8480-6 Heart Rate 1: 70 bpm Respiratory Rate: 20 bpm SpO2: 96% Temperature: 36.4 (C) / 97.6 (F) We ight: 351 lbs 12/26/2017 Blood Pressure 1: 130/80 Code: 8480-6 Heart Rate 1: 61 bpm Respiratory Rate: 20 bpm SpO2: 96% Temperature: 35.8 (C) / 96.5 (F) We ight: 345 lbs 04/13/2017 Blood Pressure 1: 138/82 Code: 8480-6 BMI: 52.1 Code: 40598-7 Heart Rate 1: 86 bpm Height: 5'8" Respiratory Rate: 24 bpm SpO2: 98% Tempera ture: 36.4 (C) / 97.6 (F) Weight: 348 lbs 08/05/2016 Blood Pressure 1: 140/78 Code: 8480-6 BMI: 52.4 Code: 76513-4 Heart Rate 1: 94 bpm Height: 5'8" Respiratory Rate: 20 bpm SpO2: 99% Tempera ture: 36.4 (C) / 97.6 (F) Weight: 350 lbs 06/15/2016 Blood Pressure 1: 146/88 Code: 8480-6 Heart Rate 1: 94 bpm Respiratory Rate: 24 bpm SpO2: 97% Temperature: 36.2 (C) / 97.1 (F) We ight: 346 lbs 02/15/2016 Blood Pressure 1: 142/76 Code: 8480-6 BMI: 50.5 Code: 58009-6 Heart Rate 1: 74 bpm Height: 5'8" Respiratory Rate: 24 bpm SpO2: 98% Tempera ture: 36.6 (C) / 97.8 (F) Weight: 337 lbs 11/23/2015 Blood Pressure 1: 142/68 Code: 8480-6 Heart Rate 1: 76 bpm Height: 5'8" Respiratory Rate: 24 bpm SpO2: 99% Temperature: 36.7 (C) / 98.1 (F) Weight: 11/03/2015 Blood Pressure 1: 136/80 Code: 8480-6 Heart Rate 1: 84 bpm Height: Respiratory Rate: 24 bpm SpO2: 98% Temperature: 36.8 (C) / 98.2 (F) We ight: 08/27/2015 Blood Pressure 1: 142/80 Code: 8480-6 BMI: 50.2 Code: 03836-0 Heart Rate 1: 82 bpm Height: 5'8" Respiratory Rate: 18 bpm SpO2: 98% Tempera ture: 36.7 (C) / 98.0 (F) Weight: 335 lbs 10/14/2014 Blood Pressure 1: 142/86 Code: 8480-6 BMI: 48.8 Code: 03612-4 Heart Rate 1: 80 bpm Height: 5'10" Respiratory Rate: 20 bpm Temperature: 36 .9 (C) / 98.4 (F) Weight: 340 lbs 09/03/2014 Blood Pressure 1: 124/80 Code: 8480-6 BMI: 49.6 Code: 83132-3 Heart Rate 1: 84 bpm Height: 5'10" Respiratory Rate: 22 bpm Temperature: 36 .4 (C) / 97.6 (F) Weight: 346 lbs 07/25/2013 Blood Pressure 1: 142/84 Code: 8480-6 BMI: 47.9 Code: 08379-3 Heart Rate 1: 68 bpm Height: 5'10" Respiratory Rate: 20 bpm SpO2: 98% Tempera ture: 36.1 (C) / 97.0 (F) Weight: 334 lbs 01/21/2013 Blood Pressure 1: 126/84 Code: 8480-6 BMI: 46.5 Code: 23924-1 Heart Rate 1: 78 bpm Height: 5'10" Respiratory Rate: 18 bpm Temperature: 36 .3 (C) / 97.4 (F) Weight: 324 lbs 07/25/2012 Blood Pressure 1: 128/68 Code: 8480-6 BMI: 47.9 Code: 90414-2 Heart Rate 1: 80 bpm Height: 5'9" Temperature: 36.6 (C) / 97.9 (F) Weight: 326 lbs 07/10/2012 Blood Pressure 1: 122/72 Code: 8480-6 BMI: 46.7 Code: 92840-9 Heart Rate 1: 78 bpm Height: 5'9" Temperature: 36.1 (C) / 97.0 (F) Weight: 318 lbs 01/31/2012 Blood Pressure 1: 126/86 Code: 8480-6 BMI: 46.7 Code: 20306-8 Heart Rate 1: 80 bpm Height: 5'9" Respiratory Rate: 20 bpm Temperature: 36 .6 (C) / 97.9 (F) Weight: 318 lbs 12/21/2011 Blood Pressure 1: 128/82 Code: 8480-6 BMI: 46.7 Code: 64389-2 Heart Rate 1: 72 bpm Height: 5'9" Respiratory Rate: 20 bpm Temperature: 36 .4 (C) / 97.6 (F) Weight: 318 lbs 09/26/2011 Blood Pressure 1: 138/82 Code: 8480-6 BMI: 46.1 Code: 27036-1 Heart Rate 1: 74 bpm Height: 5'9" Temperature: 36.6 (C) / 97.9 (F) Weight: 314 lbs 05/12/2011 Blood Pressure 1: 130/70 Code: 8480-6 BMI: 46.0 Code: 37126-6 Heart Rate 1: 68 bpm Height: 5'9" Temperature: 36.4 (C) / 97.5 (F) Weight: 313 lbs 02/09/2011 Blood Pressure 1: 124/80 Code: 8480-6 BMI: 46.0 Code: 96236-2 Heart Rate 1: 80 bpm Height: 5'9" Respiratory Rate: 20 bpm Temperature: 36 .8 (C) / 98.2 (F) Weight: 313 lbs 08/24/2010 Blood Pressure 1: 124/72 Code: 8480-6 BMI: 47.3 Code: 53974-9 Heart Rate 1: 68 bpm Height: 5'9" Temperature: 36.2 (C) / 97.1 (F) Weight: 323 lbs 06/21/2010 Blood Pressure 1: 116/82 Code: 8480-6 Heart Rate 1: 72 bpm Temperature: 36.3 (C) / 97.4 (F) Weight: 327 lbs 05/19/2010 Blood Pressure 1: 132/84 Code: 8480-6 BMI: 48.9 Code: 17667-3 Heart Rate 1: 80 bpm Height: 5'9" Temperature: 36.5 (C) / 97.7 (F) Weight: 331 lbs 03/01/2010 Blood Pressure 1: 124/70 Code: 8480-6 Heart Rate 1: 76 bpm Temperature: 36.4 (C) / 97.5 (F) Weight: 330 lbs 10/26/2009 Blood Pressure 1: 124/76 Code: 8480-6 Heart Rate 1: 76 bpm Temperature: 36.5 (C) / 97.7 (F) Weight: 329 lbs 09/22/2009 Blood Pressure 1: 128/76 Code: 8480-6 Bl ood Pressure 2: 112/80 Code: 8480-6 Blood Pressure 3: 114/76 Code: 8480-6 Heart Rate 1: 76 bpm T emperature: 36.8 (C) / 98.2 (F) Weight: 325 lbs 07/27/2009 Blood Pressure 1: 132/94 Code: 8480-6 Heart Rate 1: 84 bpm Temperature: 36.8 (C) / 98.2 (F) Weight: 326 lbs Functional Status No Functional Status data Reason For Visit Reason For Visit Effective Dates Notes follow up 08/16/2018 follow up 08/09/2018 on bite on leg. sores 08/07/2018 Possible insect bite to left ankle knee pain 12/26/2017 left well man exam (40-65 years) 04/13/2017 swelling 08/05/2016 Coworkers and Spouse have observed apneas. Patient would like to proceed with Sleep Study follow up 06/15/2016 cough 02/15/2016 knee pain 11/23/2015 Patient has hx of AC L repair to left knee- has tried ibuprofen PRN. 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 sinus congestion 06/21/2010 with nasal tendernes s foot pain 05/19/2010 No known injury, has pain in arch of left foot x 1 week. Hurts when plantar flexing and walking. Pain intensity is intemittant between uncomfortable and sharp. high blood pressure 03/01/2010 needs a refill of li sinopril 20mg qd rash 10/26/2009 around neck area, no itching, redness/burning, treated previously with betamethasone but didn't help follow up 09/22/2009 ER fwup on dizziness , using meclizine prn high blood pressure 07/27/2009 restarted lisinopril 40mg qd a couple days ago Encounters Encounter Performer Location Codes Date ([id number]) OFFICE/OUTPATIENT VISIT EST Diagnosis: Cellulitis of left lower limb[ICD10: L03.116] Diagnosis: Methicillin resistant Staphylococcus aureus infection, unspecified site[ICD10: A49.02] Diagnosis: Essential (primary) hypertension[ICD10: I10] Jahaira DANIELLE [employer] CPT-4: 91138 08/16/2018 ([id number]) OFFICE/OUTPATIENT VISIT EST Diagnosis: Cellulitis of left lower limb[ICD10: L03.116] Diagnosis: Essential (primary) hypertension[ICD10: I10] Jahaira DANIELLE [employer] [facility] CPT-4: 41413 08/09/2018 ([id number]) OFFICE/OUTPATIENT VISIT EST Diagnosis: Hyperglycemia, unspecified[ICD10: R73.9] Diagnosis: Essential (primary) hypertension[ICD10: I10] Diagnosis: Tinea pedis[ICD10: B35.3] Diagnosis: Cellulitis of left lower limb[ICD10: L03.116] Jahaira DANIELLE [employer] [facility] CPT-4: 71110 08/07/2018 ([id number]) OFFICE/OUTPATIENT VISIT EST Diagnosis: Pain in left knee[ICD10: M25.562] Diagnosis: Essential (primary) hypertension[ICD10: I10] Diagnosis: Other hyperlipidemia[ICD10: E78.49] Diagnosis: Hyperglycemia, unspecified[ICD10: R73.9] Jahaira MAURICE ADELAIDACODIE DANIELLE [employer] CPT-4: 71494 12/26/2017 ([id number]) PREV VISIT EST AGE 40-64 Diagnosis: Encounter for general adult medical examination without abnormal findings[ICD10: Z00.00] Diagnosis: Essential (primary) hypertension[ICD10: I10] Diagnosis: Obstructive sleep apnea (adult) (pediatric)[ICD10: G47.33] Diagnosis: Pain in left knee[ICD10: M25.562] Diagnosis: FLU VACCINE[ICD10: Z23] Jahaira WALKER [employer] CPT-4: 80843 04/13/2017 OFFICE/OUTPATIENT VISIT EST Diagnosis: Sleep apnea, unspecified[ICD10: G47.30] Diagnosis: Abnormal weight gain[ICD10: R63.5] Madelaine ACOSTA Windy [employer] CPT-4: 27245 08/05/2016 ([id number]) OFFICE/OUTPATIENT VISIT EST Diagnosis: Pain in right knee[ICD10: M25.561] Amanda DANIELLE DO [facility] CPT-4: 12607 06/15/2016 ([id number]) OFFICE/OUTPATIENT VISIT EST Diagnosis: Acute upper respiratory infection, unspecified[ICD10: J06.9] Amanda DANIELLE DO [facility] CPT-4: 85536 02/15/2016 ([id number]) OFFICE/OUTPATIENT VISIT EST Diagnosis: Pain in right knee[ICD10: M25.561] Aure DANIELLE DO [facility] CPT-4: 54685 11/23/2015 ([id number]) OFFICE/OUTPATIENT VISIT EST Diagnosis: Essential (primary) hypertension[ICD10: I10] Diagnosis: Unspecified contact dermatitis, unspecified cause[ICD10: L25.9] Diagnosis: Tinea pedis[ICD10: B35.3] Amanda AGUIRRE [facility] CPT-4: 06450 11/03/2015 ([id number]) PREV VISIT EST AGE 40-64 Diagnosis: Encounter for other general examination[ICD10: Z00.8] Amanda DANIELLE DO [facility] CPT-4: 35042 08/27/2015 ([id number]) OFFICE/OUTPATIENT VISIT EST Diagnosis: DERMATITIS NOS[ICD9: 692.9] Diagnosis: FOLLICULITIS[ICD9: 704.8] Aure AGUIRRE DO [facility] CPT-4: 70591 10/14/2014 ([id number]) PREV VISIT EST AGE 40-64 Diagnosis: ROUTINE MEDICAL EXAM[ICD9: V70.0] Diagnosis: PAIN, LOWER BACK[ICD9: 724.2] Diagnosis: SPASM OF MUSCLE[ICD9: 728.85] Nayana DANIELLE DO [facility] CPT-4: 10698 09/03/2014 OFFICE/OUTPATIENT VISIT EST Diagnosis: COUGH[ICD9: 786.2] Diagnosis: WHEEZING[ICD9: 786.07] Diagnosis: SINUSITIS, ACUTE[ICD9: 461.9] Nayana DANIELLE DO [facility] CPT-4: 31042 07/25/2013 OFFICE/OUTPATIENT VISIT EST Diagnosis: COUGH[ICD9: 786.2] Diagnosis: BRONCHITIS, ACUTE[ICD9: 466.0] Nayana Madsen AURE Jasso KENTRELLTIMOTHY [facility] CPT-4: 74629 01/21/2013 ([id number]) PREV VISIT EST AGE 18-39 Diagnosis: ROUTINE MEDICAL EXAM[ICD9: V70.0] Diagnosis: HYPERTENSION[ICD9: 401.9] Diagnosis: Hyperlipidemia[ICD9: 272.4] Aure PANG [facility] CPT-4: 98956 07/25/2012 OFFICE/OUTPATIENT VISIT EST Diagnosis: HYPERTENSION[ICD9: 401.9] Lazara Jonathan Temple [facility] CPT-4: 16445 07/10/2012 OFFICE/OUTPATIENT VISIT EST Diagnosis: LYMPHADENOPATHY[ICD9: 785.6] Diagnosis: Foot pain[ICD9: 729.5] Diagnosis: TINEA PEDIS[ICD9: 110.4] Diagnosis: HYPERTENSION[ICD9: 401.9] Aure AGUIRRE [facility] CPT-4: 84819 01/31/2012 ([id number]) OFFICE/OUTPATIENT VISIT EST Diagnosis: CERVICALGIA[ICD9: 723.1] Diagnosis: SPASM OF MUSCLE[ICD9: 728.85] Aure Temple [facility] CPT-4: 43462 12/21/2011 OFFICE/OUTPATIENT VISIT EST Diagnosis: ACUTE PAIN NEC[ICD9: 338.19] Diagnosis: HYPERTENSION[ICD9: 401.9] Aure AGUIRRE [facility] CPT-4: 35015 09/26/2011 OFFICE/OUTPATIENT VISIT EST Diagnosis: COUGH[ICD9: 786.2] Diagnosis: SINUSITIS, ACUTE[ICD9: 461.9] Diagnosis: PHARYNGITIS, ACUTE[ICD9: 462] Aure Temple [facility] CPT-4: 05554 05/12/2011 OFFICE/OUTPATIENT VISIT EST Diagnosis: HYPERTENSION[ICD9: 401.9] Diagnosis: ELEV TRANSAMINASE/LDH[ICD9: 790.4] Diagnosis: Thoracic back pain[ICD9: 724.1] Aure Temple [facility] CPT-4: 14764 02/09/2011 ([id number]) PREV VISIT EST AGE 18-39 Aure [facility] CPT-4: 99035 08/24/2010 ([id number]) OFFICE/OUTPATIENT VISIT EST Aure [facility] CPT-4: 12116 06/21/2010 ([id number]) OFFICE/OUTPATIENT VISIT EST Aure [facility] CPT-4: 41021 05/19/2010 ([id number]) OFFICE/OUTPATIENT VISIT, EST Aure [facility] CPT-4: 65117 03/01/2010 ([id number]) OFFICE/OUTPATIENT VISIT, EST Aure [facility] CPT-4: 53054 10/26/2009 ([id number]) OFFICE/OUTPATIENT VISIT, EST Aure [facility] CPT-4: 09942 09/22/2009 ([id number]) OFFICE/OUTPATIENT VISIT, EST Aure [facility] CPT-4: 99726 07/27/2009 Plan of Care Planned Activity Notes Codes Status Date Care Plan: COMPREH[place]AB[place]IC [place] : 29216-4 Pending 06/27/2019 Care Plan: LIPID PANEL LOINC : 22802-6 Pending 06/27/2019 Care Plan: A1C HPLC LOINC : 08610-7 Pending 06/27/2019 Visit Diagnosis Plan: Essential (primary) hypertension Discussion: dc bystolic but continue with lisinopril. elevated bp most likely was r/t pain, anxiety, and infection. instructed to monitor bp at work and to call office with readings. ICD-9 : 401.9 ICD-10 : I10 08/16/2018 Visit Diagnosis Plan: Cellulitis of left lower limb Di scussion: much improved with no more swelling. finish out antibiotics and call office if redness continues next week. ICD-9 : 682.7 ICD-10 : L03.116 08/16/2018 Appointment: Jahaira Torres [address] [place], [place] [phone] FOLLOW UP 08/16/2018 Patient Education: High Blood Pressure Co mpleted 08/16/2018 Visit Diagnosis Plan: Essential (primary) hypertension Discussion: sample of bystolic given to patient with instructions on use. discussed with patient that bp may be elevated due to infection and pain but to take bystolic daily and will recheck bp at follow up appt next week. ICD-9 : 401.9 ICD-10 : I10 08/09/2018 Visit Diagnosis Plan: Cellulitis of left lower limb Di scussion: culture obtained in clinic since area appears to be worse than last visit. rocephin injection given in office and instructed patient to complete the bactrim until gone. tylenol/ibuprofen prn pain. dapsone prescribed to cover for brown recluse bite due to appearance of bite and wound. rtc in one week for assessment of wound. call before then if worsens though. ICD-9 : 682.6 ICD-10 : L03.116 08/09/2018 Appointment: Jahaira Torres [address] [facility] FOLLOW UP 08/09/2018 Patient Education: High Blood Pressure Co mpleted 08/09/2018 Visit Diagnosis Plan: Essential (primary) hypertension Discussion: Return for BP check once infection gone. Discussion: Return for BP check ICD-9 : 401.9 ICD-10 : I10 08/07/2018 Visit Diagnosis Plan: Cellulitis of left lower limb Di scussion: bactrim bid for 10 days. call or rtc for new or worsening symptoms. ICD-9 : 682.6 ICD-10 : L03.116 08/07/2018 Visit Diagnosis Plan: Hyperglycemia, unspecified Discu ssion: Check CMP, HbA1C ICD-9 : 790.29 ICD-10 : R73.9 08/07/2018 Visit Diagnosis Plan: Tinea pedis Discussion: Diflucan and topical ointment prescribed to take as directed. keep feet clean and dry and take shoes/socks off as much as possible. purchase socks that wisk away moisture Discussion: Diflucan ICD-9 : 110.4 ICD-10 : B35.3 08/07/2018 Appointment: Jahaira Torres [address] [facility] ACUTE ILLNESS 08/07/2018 Patient Education: nystatin-triamcinolone- [employer] Coupon [id number] [email or web address]://[email or web address].com/samplemd/resources/getResource/[email or web address]/[email or web address]-[email or web address] Completed 08/07/2018 Patient Education: High Blood Pressure Co mpleted 08/07/2018 Visit Diagnosis Plan: Pain in left knee Discussion: me drol pack to take as directed. instructed to purchase knee brace to wear daily to assist with pain and swelling. ice to knee to assist with swelling and rest often. keep appt with dr. flores for monday. xray ordered to be completed today to rule out acute fracture. ICD-9 : 719.46 ICD-10 : M25.562 12/26/2017 Appointment: Jahaira Torres [address] [place], [place] [phone] ACUTE ILLNESS 12/26/2017 Patient Education: Patient Medication Summary Completed 12/26/2017 Visit Diagnosis Plan: Essential (primary) hypertension Discussion: stable. continue current medications. fasting labs to be obtained next week. ICD-9 : 401.9 ICD-10 : I10 04/13/2017 Visit Diagnosis Plan: Encounter for [facility] adult medical examination without abnormal findings Discussion: received influenza vaccine a t this time. states he's up to date on tdap. will rtc next week for fasting labs. ICD-9 : V70.9 ICD-10 : Z00.00 04/13/2017 Visit Diagnosis Plan: Pain in left knee Discussion: me loxicam refilled at this time. ICD-9 : 719.46 ICD-10 : M25.562 04/13/2017 Visit Diagnosis Plan: Obstructive sleep apnea (adult) (pediatric) Discussion: uses cpap daily. new order sent to [facility] to adjust cpap machine for patient. ICD-9 : 327.23 ICD-10 : G47.33 04/13/2017 Appointment: Jahaira Torres [address] [place], [place] [phone] MEDICATION REVIEW 04/13/2017 Patient Education: Patient Medication Summary Completed 04/13/2017 Visit Plan: Discussed that he is at risk for JAVIER due to weight and neck circumfrence. Completed apena questionaire and sleep study requisition Discussed that Mobic is not generally recognized to be a likely culprit for weight gain so patient wants refill. Will await results of sleep study. 08/05/2016 Appointment: Madelaine Li WPtel: [address] [place], [place] [id number] MEDICATION REVIEW 08/05/2016 Patient Education: Patient Medication Summary Completed 08/05/2016 Visit Diagnosis Plan: Pain in right knee Discussion: R equested xray report from MR Start MDP as above Can restart meloxicam Ice, elevate, rest, brace, etc Work on weight loss Will need to refer to Ortho, MRI, PT, joint injection, etc if mary beth n not improving ICD-9 : 719.46 ICD-10 : M25.561 06/15/2016 Appointment: Amanda Squires [address] [place], [place] [phone] ACUTE ILLNESS 06/15/2016 Patient Education: Patient Medication Summary Completed 06/15/2016 Visit Plan: Exam fairly benign but with symptoms and length of time, will treat as above Hermelinda HBP Monitor BP since his SBP is borderline today Vicks, humidifier, nasal rinses, vitamin C, etc Follow up PRN 02/15/2016 Appointment: Amanda Squires [address] [place], [place] [phone] ACUTE ILLNESS 02/15/2016 Patient Education: Patient Medication Summary Completed 02/15/2016 Visit Plan: Check right knee x-ray Mobic 15mg daily with pepcid 20mg daily Discussed weight loss Straight leg raises and bicycling 11/23/2015 Appointment: Aure Danielle WPtel: [address] [place], [place] [phone] 11/18 lm~sl 11/22 lm~sl ACUTE ILLNESS 11/23/2015 Patient Education: Patient Medication Summary Completed 11/23/2015 Care Plan: X-RAY EXAM OF KNEE 1 OR 2 [place] : 99[address]-3 Pending 11/23/2015 Visit Plan: Refill on lisinopril given N eeds labs updated - 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 [place] 11/01 lm` 11/02 lm~sl ACUTE ILLNESS 11/03/2015 Patient Education: Patient Medication Summary Completed 11/03/2015 Patient Education: [facility] - Saving AutoInj - Lisinopril - 18-64 - Dynamic Portal ID Completed 11/03/2015 Visit Plan: Physical wnl Form completed 08/27/2015 Appointment: Amanda Squires [address] [place], [place] [phone] 08/25 lm ~ PHYSICAL 08/27/2015 Patient Education: Patient Medication Summary Completed 08/27/2015 Visit Plan: Bactrim and Medrol Dose Pack Call in 1week Claritin 10mg q AM and Benadryl 25mg q HS Check fasting lab 10/14/2014 Appointment: Aure Danielle WPtel: [address] [place], [place] [phone] 10/13/2014 lm FOLLOW UP 10/14/2014 Patient Education: Patient Medication Summary Completed 10/14/2014 Patient Education: [facility] - Saving [employer]j - Lisinopril - 18-64 - Dynamic Portal ID Completed 10/14/2014 Visit Plan: Zorvolex 35 mg PO TID Flexer il 10 mg PO TID as needed for muscle spasm. Ultram 50 mg PO as needed for severe pain. Low back stretches several times daily. Instructed to follow-up if symptoms not improved. 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 Pt. 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 Discussed that would like to obtain fasting labs: CBC, CMP, TSH, Free T4 and Lipid panel. 07/25/2012 Appointment: Lazara Castillo WPtel: [address] [place] [address] Annual Well Visit 07/25/2012 Patient Education: Patient Medication Summary Completed 07/25/2012 Appointment: Lazara Castillo WPtel: [address] [place] [address] ACUTE ILLNESS 07/10/2012 Patient Education: Patient Medication Summary Completed 07/10/2012 Appointment: Lazara Castillo WPtel: [address] [place] [address] 05/02 left message...05/03 no showed appt FOLLOW UP 05/03/2012 Appointment: Lazara Castillo WPtel: [address] [place] [address] ACUTE ILLNESS 01/31/2012 Patient Education: Patient Medication Summary Completed 01/31/2012 Visit Plan: OMT done Daily stretches Fin janet medrol dose pack Restart flexeril q HS Topical biofreeze 12/21/2011 Appointment: Aure Danielle WPtel: [address] [place] [address] ACUTE ILLNESS 12/21/2011 Patient Education: Patient Medication Summary Completed 12/21/2011 Appointment: Laazra Castillo WPtel: [address] [place] [address] ACUTE ILLNESS 11/14/2011 Visit Plan: left foot x-ray. fasting lab s: CBC, CMP, TSH, Free T4, uric acid and lipids. Left foot pain. Will continue current dose of hypertension medication. Discussed that will consider podiatry or ortho consult if RICE and Ibuprofen does not help. Pt. 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 Pt. will come in for BP check when [facility] is over. 09/26/2011 Appointment: Lazara Castillo WPtel: [address] [place] [address] ACUTE ILLNESS 09/26/2011 Patient Education: Patient Medication Summary Completed 09/26/2011 Visit Plan: Doxycycline, medrol dose pac k and codeine/guiaf cough syrup. All 3 meds were phoned into [facility]. Pt. report he has recently been around a family member who "had pneumonia." Discussed that if no improvment may need lab draw for CBC and mycoplasma. Pt. states he is traveling next week and "can't be sick." Pt. is aware he needs to notify if symptoms worsen or fever occurs. 05/12/2011 Appointment: Lazara Castillo WPtel: [address] [place] [address] ACUTE ILLNESS 05/12/2011 Patient Education: Patient Medication Summary Completed 05/12/2011 Visit Plan: Check fasting lab including LFTs Continue current lisinopril dose OMT done to back plus daily stretches including towel stretch 02/09/2011 Appointment: Aure Danielle WPtel: [address] [place] [address] FOLLOW UP 02/09/2011 Patient Education: Patient Medication Summary Completed 02/09/2011 Appointment: Lazara Castillo WPtel: [address] [place] [address] PHYSICAL 08/24/2010 Patient Education: Patient Medication Summary Completed 08/24/2010 Visit Plan: Saline nasal flushes prn. Ty lenol/Motrin prn headache. Notify if persists/symptoms worsening. Veramyst BID Repeat liver enzymes next mo--discussed possible HENDERSON and may need GI eval and even liver biopsy 06/21/2010 Appointment: Aure Danielle WPtel: [address] [place] [address] ACUTE ILLNESS 06/21/2010 Patient Education: Patient Medication Summary Completed 06/21/2010 Visit Plan: will give handout for planta ar fasciitis. Discussed stretching regimen. Flexeril. Discussed podiatry consult if no improvement 05/19/2010 Appointment: Lazara Castillo WPtel: [address] [place], [place] [id number] ACUTE ILLNESS 05/19/2010 Patient Education: Patient Medication Summary Completed 05/19/2010 Appointment: Aure Danielle WPtel: [address] [place], [place] [phone] [place] FOLLOW UP 03/01/2010 Patient Education: Patient Medication Summary Completed 03/01/2010 Appointment: Aure Danielle WPtel: [address] [place], [place] [phone] [place] INJECTION 12/31/2009 Patient Education: Patient Medication Summary Completed 12/31/2009 Visit Plan: Use Selsun Blue to wash neck daily 10/26/2009 Appointment: Aure Danielle WPtel: [address] [place] [address] FOLLOW UP 10/26/2009 Patient Education: Patient Medication Summary Completed 10/26/2009 Visit Plan: Vestibular exercises Veramys t BID Meclizine BID Decrease Lisinopril to 1/2 tab QD BP check in 2wks 09/22/2009 Appointment: Aure Danielle WPtel: [address] [place], [place] [id number] ER Follow UP 09/22/2009 Patient Education: Patient Medication Summary Completed 09/22/2009 Visit Plan: Cont Lisinopril Daily back s tretches Use Mobic, Flexeril prn Betamethasone BID for 1wk for rash 07/27/2009 Appointment: Aure Danielle WPtel: [address] [place], [place] [phone] [place] FOLLOW UP 07/27/2009 Patient Education: Patient Medication Summary Completed 07/27/2009 Instructions Comment . Discussed that he is at risk for JAVIER d ue to weight and neck circumfrence. Completed apena questionaire and sleep study requisition Discussed that Mobic is not generally recognized to be a likely culprit for weight gain so patient wants refill. Will await results of sleep study. . Exam fairly benign but with symptoms a nd length of time, will treat as above Coricidin HBP Monitor BP since his SBP is borderline today Vicks, humidifier, nasal rinses, vitamin C, etc Follow up PRN . Check right knee x-ray Mobic 15mg daily with pepcid 20mg daily Discussed weight loss Straight leg raises and bicycling . 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 Physical wnl Form completed . Bactrim and Medrol Dose Pack Call in 1week Claritin 10mg q AM and Benadryl 25mg q HS Check fasting lab . Zorvolex 35 mg PO TID Flexeril 10 mg PO TID as needed for muscle spasm. Ultram 50 mg PO as needed for severe pain. Low back stretches several times daily. Instructed to follow-up if symptoms not improved. . 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 Pt. 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 Discussed that would like to obtain fasting labs: CBC, CMP, TSH, Free T4 and Lipid panel. . OMT done Daily stretches Finish medrol dose pack Restart flexeril q HS Topical biofreeze . left foot x-ray. fasting labs: CBC, C MP, TSH, Free T4, uric acid and lipids. Left foot pain. Will continue current dose of hypertension medication. Discussed that will consider podiatry or ortho consult if RICE and Ibuprofen does not help. Pt. 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 Pt. will come in for BP check when [facility] is over. . Doxycycline, medrol dose pack and code ine/guiaf cough syrup. All 3 meds were phoned into [facility]. Pt. report he has recently been around a family member who "had pneumonia." Discussed that if no improvment may need lab draw for CBC and mycoplasma. Pt. states he is traveling next week and "can't be sick." Pt. is aware he needs to notify if symptoms worsen or fever occurs. . Check fasting lab including LFTs Continue current lisinopril dose OMT done to back plus daily stretches including towel stretch . Saline nasal flushes prn. Tylenol/Motr in prn headache. Notify if persists/symptoms worsening. Veramyst BID Repeat liver enzymes next mo--discussed possible HENDERSON and may need GI eval and even liver biopsy . will give handout for amanda fasciit is. Discussed stretching regimen. Flexeril. Discussed podiatry consult if no improvement . Use Selsun Blue to wash neck daily . Vestibular exercises Veramyst BID Meclizine BID Decrease Lisinopril to 1/2 tab QD BP check in 2wks . Cont Lisinopril Daily back stretches Use Mobic, Flexeril prn Betamethasone BID for 1wk for rash Medical Equipment No Medical Equipment data Health Concerns Section Health Concerns data not found Goals Section Goals data not found Interventions Section Interventions data not found Health Status Evaluations/Outcomes Section Health Status Evaluations/Outcomes data not found Advance Directives No Advance Directive data
--- OUTSIDE RECORDS SUMMARY | 2019-08-04 15:31 | XMS REPORT ---
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 Active 04547334 Problem Body mass index (BMI) of 40.0-44.9 in adult Z68.41 Active 680789431 Problem Essential hypertension I10 Active 12495549 ALLERGIES No Information ENCOUNTERS Encounter Location Date Diagnosis [facility] [address] [id number] May, 2018 Screening for tuberculosis Z 11.1 [facility] [address] [id number] Jan, Penile swelling N48.89 ; Bal anitis N48.1 and BMI 40.0- 44.9, adult Z68.41 [facility] [address] [id number] Jan, Dysfunction of right eustach jason tube H69.81 and Ear pain, right H92.01 [facility] [address] [id number] [address] [place] [id number] Aug, Visit for TB skin test Z11.1 and Screening for tuberculosis Z11.1 [facility] [id number] [place] [id number] Jun, Sinusitis J32.9 and Allergic rhinitis J30.9 [facility] [address] [id number] [address] [place] [id number] Jun, [facility] [address] [id number] [address] [place] [id number] Jun, [facility] [address] [id number] [address] [place] [phone] Sep, [facility] [address] [id number] [address] [place] [id number] Sep, [facility] [address] [id number] [address] [place] [id number] Apr, [facility] [address] [id number] [address] [place] [phone] Apr, [facility] [address] [facility] [id number] [address] [place] [id number] Mar, [facility] [address] [facility] [id number] [address] [place] [id number] Mar, IMMUNIZATIONS No Known Immunizations SOCIAL HISTORY Never Assessed 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 [facility] [place] VITAL SIGNS MEDICATIONS Medication Instructions Dosage Frequency Start Date End Date Duration S tatus Lisinopril 20 mg take 1 tablet (20 mg) by oral route o nce daily Sep, Active RESULTS No Results PROCEDURES No Known procedures INSTRUCTIONS MEDICATIONS ADMINISTERED No Known Medications MEDICAL (GENERAL) HISTORY Type Description Date Medical History hypertension Medical History obesity Medical History herniated disc Medical History sleep apnea wears CPAP Medical History STATE HEP A (ADULT) DX Surgical History Left ACL 1994 Surgical History Gall bladder 1995
--- OUTSIDE RECORDS SUMMARY | 2019-08-04 15:31 | XMS REPORT | CCD ---
Author Author Kaushal Danielle D.O. 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 [employer] Name Role Phone [facility] D.O., PP Unavailable CCM Unavailable Summary Purpose Interface Exchange Insurance Providers Payer name Policy type / Coverage type Covered democrat ID Effective Begin Date Effective End Date Blue Cross Blue Shield Blue Cross/Blue Shield [id number] Unknown Family history Father Diagnosis Age At Onset Diabetes Unknown Brother Diagnosis Age At Onset No Family Disease Entered N/A Mother Diagnosis Age At Onset No Family Disease Entered N/A Social History Social History Element Codes Description Effective Dates Tobacco history SNOMED CT: 212483796 Has never smoked or chewed tobacco 07/25/2012 Allergies, Adverse Reactions, Alerts Substance Reaction Codes Entered Date Inactivated Date Status * NO KNOWN ENVIRONMENTAL ALLERGIES Unknown 05/19/2010 N o Inactive Date Active * NO KNOWN DRUG ALLERGIES Unknown 07/27/2009 No Inactiv e Date Active * NO KNOWN FOOD ALLERGIES Unknown 05/19/2010 No Inactiv e Date Active Problems Condition Codes Effective Dates Condition Status Cellulitis of left lower limb ICD-9: 682.7 ICD-10: L03.116 08/16/2018 Active Essential (primary) hypertension ICD-9: 401.9 ICD-10: I10 08/16/2018 Active Methicillin resistant Staphylococcus aureus infection, unspecified site ICD-9: 041.12 ICD-10: A49.02 08/16/2018 Active Cellulitis of left lower limb ICD-9: 682.6 ICD-10: L03.116 08/07/2018 Active Hyperglycemia, unspecified ICD-9: 790.29 ICD-10: R73.9 12/26/2017 Active Tinea pedis ICD-9: 110.4 ICD-10: B35.3 [...] Fill Instructions lisinopril 20 mg tablet RxNorm: 196953 TAKE ONE TABLET BY MOUTH DAILY 06/27/2019 No Stop Date Active meloxicam 15 mg tablet RxNorm: 757266 1 Tablet(s) Oral QAM 01/25/20 19 04/24/2019 Inactive meloxicam 15 mg tablet RxNorm: 380941 1 Tablet(s) PO QAM 10/05/2018 1 Inactive lisinopril 20 mg tablet RxNorm: 924766 TAKE ONE TABLET BY MOUTH DAILY 09/20/2018 03/18/2019 Inactive dapsone 100 mg tablet RxNorm: 688856 1 Tablet(s) PO QD 08/09/201802/2019 Inactive nystatin-triamcinolone 100,000 unit/g-0.1 % topical cream Rx Norm: 0164769 1 Application TOP BID 08/07/2018 08/20/2018 Inactive Diflucan 150 mg tablet RxNorm: 413432 1 Tablet(s) PO QD 08/07/2018 Inactive Bactrim DS 800 mg-160 mg tablet RxNorm: 882550 1 Tablet(s) PO BID 0 08/07/2018 08/16/2018 Inactive meloxicam 15 mg tablet RxNorm: 617416 1 Tablet(s) PO QAM 06/20/2018 0 09/17/2018 Inactive lisinopril 20 mg tablet RxNorm: 413878 TAKE ONE TABLET BY MOUTH DAILY 06/20/2018 06/19/2018 Inactive meloxicam 15 mg tablet RxNorm: 578652 1 Tablet(s) PO QAM 06/20/2018 0 09/17/2018 Inactive lisinopril 20 mg tablet RxNorm: 102913 1 Tablet(s) PO QD 06/20/2018 0 09/17/2018 Inactive meloxicam 15 mg tablet RxNorm: 055963 1 Tablet(s) PO QAM 05/02/2018 0 06/19/2018 Inactive meloxicam 15 mg tablet RxNorm: 187660 1 Tablet(s) PO QAM 04/30/2018 0 06/19/2018 Inactive cyclobenzaprine 10 mg tablet RxNorm: 335490 1/2 -1 Tabl et(s) PO QHS as needed for muscle spasm 04/11/2018 No Stop Date Active Medrol (Nico) 4 mg tablets in a dose pack RxNorm: 249924 Tablet(s) PO take as directed 04/11/2018 08/06/2018 Inactive Medrol (Nico) 4 mg tablets in a dose pack RxNorm: 711117 Tablet(s) PO take as directed 12/26/2017 04/10/2018 Inactive lisinopril 20 mg tablet RxNorm: 580716 TAKE ONE TABLET BY MOUTH DAILY 12/12/2017 06/09/2018 Inactive meloxicam 15 mg tablet RxNorm: 611620 1 Tablet(s) PO QAM 10/12/2017 0 04/09/2018 Inactive meloxicam 15 mg tablet RxNorm: 711066 Tablet(s) TAKE ON E TABLET BY MOUTH EVERY MORNING 04/13/2017 10/09/2017 Inactive lisinopril 20 mg tablet RxNorm: 550284 1 Tablet(s) PO QD 12/08/2016 0 12/02/2017 Inactive meloxicam 15 mg tablet RxNorm: 200159 Tablet(s) TAKE ON E TABLET BY MOUTH EVERY MORNING 08/05/2016 01/31/2017 Inactive meloxicam 15 mg tablet RxNorm: 043175 Tablet(s) TAKE ON E TABLET BY MOUTH EVERY MORNING 07/12/2016 08/04/2016 Inactive meloxicam 15 mg tablet RxNorm: 894846 TAKE ONE TABLET BY MOUTH EVERY MORNING 06/16/2016 07/11/2016 Inactive Medrol (Nico) 4 mg tablets in a dose pack RxNorm: 319331 Take as directed 06/15/2016 08/04/2016 Inactive amoxicillin 875 mg tablet RxNorm: 334360 1 Tablet(s) PO BID 016 02/24/2016 Inactive Pepcid 20 mg tablet RxNorm: 965004 TAKE ONE TABLET BY MOUTH MARTHA RY MORNING 12/21/2015 04/12/2017 Inactive meloxicam 15 mg tablet RxNorm: 362365 1 Tablet(s) PO QAM 11/23/2015 1 Inactive Pepcid 20 mg tablet RxNorm: 812627 1 Tablet(s) PO QAM 11/23/201512/04 Inactive triamcinolone acetonide 0.1 % topical cream RxNorm: 7327365 Apply topically to affected areas(ankles) 3-4 times daily as needed 11/03/2015 12/25/2017 Inactive Naftin 2 % topical cream RxNorm: 7077734 Apply topically to affected areas(bilateral feet) once daily for 2 weeks 11/03/2015 12/25/2017 [place] [facility] lisinopril 20 mg tablet RxNorm: 199045 1 Tablet(s) PO QD 11/03/2015 0 10/27/2016 Inactive lisinopril 20 mg tablet RxNorm: 817930 1 Tablet(s) PO QD 10/28/2015 0 11/02/2015 Inactive lisinopril 20 mg tablet RxNorm: 522178 1 Tablet(s) PO Q D Needs appointment before next refill 07/28/2015 08/26/2015 Inactive lisinopril 20 mg tablet RxNorm: 728855 1 Tablet(s) PO Q D Needs appointment before next refill 07/22/2015 07/28/2015 Inactive lisinopril 20 mg tablet RxNorm: 944362 TAKE ONE TABLET BY MOUTH DAILY 04/24/2015 07/22/2015 Inactive Medrol (Nico) 4 mg tablets in a dose pack RxNorm: 103459 Tablet(s) PO QD --then as directed 02/23/2015 02/28/2015 Inactive Ultram 50 mg tablet RxNorm: 315613 1 - 2 Tablet(s) PO T ID as needed as needed for pain 02/23/2015 08/26/2015 Inactive Medrol (Nico) 4 mg tablets in a dose pack RxNorm: 532058 6 Tablet(s) PO QD --then as directed 10/14/2014 10/19/2014 Inactive lisinopril 20 mg tablet RxNorm: 663632 1 Tablet(s) PO Q D TAKE ONE TABLET BY MOUTH ONE TIME A DAY 10/14/2014 04/11/2015 Inactive Bactrim DS 800 mg-160 mg tablet RxNorm: 145157 1 Tablet(s) PO BID 0 10/14/2014 10/23/2014 Inactive lisinopril 20 mg tablet RxNorm: 820472 1 Tablet(s) PO Q D TAKE ONE TABLET BY MOUTH ONE TIME A DAY 10/13/2014 10/13/2014 Inactive Zorvolex 35 mg capsule RxNorm: 6316222 1 Capsule(s) PO TID 09/04/19 15 08/26/2015 Inactive Ultram 50 mg tablet RxNorm: 118543 1 - 2 Tablet(s) PO T ID as needed as needed for pain 09/03/2014 02/22/2015 Inactive Flexeril 10 mg tablet RxNorm: 397079 1 Tablet(s) PO TID prn spasm 0 09/03/2014 08/26/2015 Inactive lisinopril 20 mg tablet RxNorm: 660572 1 Tablet(s) PO Q D TAKE ONE TABLET BY MOUTH ONE TIME A DAY 04/21/2014 10/13/2014 Inactive lisinopril 20 mg tablet RxNorm: 063715 1 Tablet(s) PO Q D TAKE ONE TABLET BY MOUTH EVERY DAY 10/21/2013 04/21/2014 Inactive cefdinir 300 mg capsule RxNorm: 900916 2 Capsule(s) PO QD 07/25/2013 08/03/2013 Inactive prednisone 20 mg tablet RxNorm: 393289 1 Tablet(s) PO BID 07/25/2013 07/31/2013 Inactive lisinopril 20 mg tablet RxNorm: 390399 1 Tablet(s) PO T TAMARA ONE TABLET BY MOUTH EVERY DAY 04/12/2013 10/20/2013 Inactive doxycycline hyclate 100 mg tablet RxNorm: 3890590 1 Tablet(s) PO BI D 01/21/2013 01/30/2013 Inactive albuterol sulfate 2.5 mg/3 mL (0.083 %) solution for n ebulization RxNorm: 263787 3 Milliliter(s) INH QID 01/21/2013 01/30/2013 Inactive lisinopril 20 mg tablet RxNorm: 047408 1 Tablet(s) PO QD 07/09/2012 0 04/12/2013 Inactive metformin ER 500 mg 24 hr tablet,extended release RxNorm: 86 0975 1 Tablet(s) PO QD 02/02/2012 07/24/2012 Inactive metformin ER 500 mg 24 hr tablet,extended release RxNorm: 86 1018 1 Tablet(s) PO QD 02/02/2012 02/01/2012 Inactive Lamisil 250 mg tablet RxNorm: 149371 1 Tablet(s) PO QD 02/02/2012 Inactive Lamisil 250 mg tablet RxNorm: 381143 1 Tablet(s) PO QD 02/02/2012 Inactive Flexeril 10 mg tablet RxNorm: 064358 1 Tablet(s) PO TID prn spasm 1 03/24/2011 07/24/2012 Inactive Ultram 50 mg tablet RxNorm: 596581 1-2 Tablet(s) PO TID as need ed for pain 01/23/2012 07/24/2012 Inactive lisinopril 20 mg tablet RxNorm: 660649 1 Tablet(s) PO QD 09/26/2011 0 06/21/2012 Inactive lisinopril 20 mg Tab RxNorm: 593011 1 Tablet(s) PO QD 06/27/201109/04 Inactive doxycycline hyclate 100 mg tablet RxNorm: 8374814 1 Tablet(s) PO BI D 05/12/2011 05/21/2011 Inactive lisinopril 20 mg Tab RxNorm: 154291 1 Tablet(s) PO QD 12/02/201005/05 Inactive cefdinir 300 mg Cap RxNorm: 496313 2 Capsule(s) PO QD 06/21/2010 0503/2010 Inactive Flexeril 10 mg tablet RxNorm: 826961 1 Tablet(s) PO TID prn spasm 0 05/19/2010 06/01/2010 Inactive lisinopril 20 mg Tab RxNorm: 138804 1 Tablet(s) PO QD 03/01/201008/05 Inactive lisinopril 20 mg Tab RxNorm: 270427 1 Tablet(s) PO QD 10/26/200901/05 Inactive Ketoconazole 200 mg Tab RxNorm: 893667 1 Tablet(s) PO BID 10/26/2009 11/22/2009 Inactive Lisinopril 20 mg Tab RxNorm: 819265 1 Tablet(s) PO QD 10/26/200910/05 Inactive Prednisone 20 mg Tab RxNorm: 246424 1 Tablet(s) PO BID 09/22/2009 Inactive Flexeril 10 mg Tab RxNorm: 993845 1 Tablet(s) PO QHS prn spasm 07/0509/24/2009 Inactive Lisinopril 40 mg Tab RxNorm: 107174 1 Tablet(s) PO QD 07/27/200910/05 Inactive Ibuprofen 200 mg Tab RxNorm: 20100411 1-2 Tablet(s) PO PRN No Start D ate 02/08/2011 Inactive Ibuprofen 200 mg Tab RxNorm: 20100411 Tablet(s) PO PRN No Start Date Inactive Medrol (Nico) 4 mg Tabs in a Dose Pack RxNorm: 662666 Tablet(s) PO as directed No Start Date 12/20/2011 Inactive Medrol (Nico) 4 mg tablets in a dose pack RxNorm: 808716 Tablet(s) PO take as directed No Start Date 12/25/2017 Inactive Glucos Chond Cplx Advanced Oral RxNorm: Oral No Start Date 10/05 Inactive Ultram 50 mg tablet RxNorm: 739691 1-2 Tablet(s) PO TID as need ed for pain No Start Date 01/22/2012 Inactive cyclobenzaprine 10 mg tablet RxNorm: 267441 1/2 -1 Tabl et(s) PO QHS as needed for muscle spasm No Start Date 04/10/2018 Inactive Medrol (Nico) 4 mg tablets in a dose pack RxNorm: 898223 Tablet(s) PO take as directed No Start Date 04/10/2018 Inactive Lisinopril 40 mg Tab RxNorm: 980025 1 Tablet(s) PO QD No Start Date 0 07/26/2009 Inactive Lisinopril 40 mg Tab RxNorm: 962478 1/2 Tablet(s) PO QD No Start Da te 10/25/2009 Inactive Restoril 15 mg capsule RxNorm: 798415 1 Capsule(s) PO QHS No Start Date 04/12/2017 Inactive Medication Administered No Medication Administered data Immunizations Vaccine Codes Date Status Influenza CVX: 141 04/13/2017 Complete Influenza (Adult) CVX: 141 12/31/2009 Results Observation Observation Code Item Item Code Result Date S ervice Location THYROID STIMULATING HORMONE 11875 TSH 2.639 uIU/mL 08/07/2018 Unknown [facility] 07310 Cholesterol 200 mg/dL 08/07/2018 Unkno wn [facility] 80069 Triglyceride 110 mg/dL 08/07/2018 Unkn own [facility] 88993 HDL CHOLESTEROL 38 mg/dL 08/07/2018 U nknown [facility] 95388 Chol/HDL Ratio 5.26 ratio 08/07/2018 U nknown [facility] 04045 NON-HDL Chol 162 mg/dL 08/07/2018 Unkn own [facility] 08162 LDL Cholesterol 140 mg/dL 08/07/2018 U nknown COMPREHENSIVE METABOLIC 22331 AST 22 U/L 2018 Unknown COMPREHENS[facility] METABOLIC 18486 ALT 34 U/L 2018 Unknown [facility] 86971 BUN 11 mg/dL 2018 Unknown [facility] 22334 ALBUMIN 4.3 g/dL 2018 Unknown COMPREHENS[facility] METABOLIC 51515 CHLORIDE 104 mmol/L 08/07 Unknown COMPREHENSIVE METABOLIC 53388 Bili Total 1.0 mg/dL 08/07 Unknown COMPREHENSIVE METABOLIC 81568 ALK PHOS 57 U/L 2018 Unknown COMPREHENSIVE METABOLIC 87634 SODIUM 139 mmol/L 08/07 Unknown COMPREHENSIVE METABOLIC 75254 CREATININE 0.98 mg/dL 06/2018 Unknown COMPREHENSIVE METABOLIC 89132 CALCIUM 9.1 mg/dL 2018 Unknown COMPREHENSIVE METABOLIC 93531 POTASSIUM 4.0 mmol/L 08/07 Unknown COMPREHENSIVE METABOLIC 15469 Total Protein 6.8 g/dL Unknown COMPREHENSIVE METABOLIC 04618 Glucose 114 mg/dL 2018 Unknown COMPREHENSIVE METABOLIC 96523 Bicarbonate 27 mmol/L 06/2018 Unknown COMPREHENSIVE METABOLIC 00444 AGAP 8 mmol/L 2018 Unknown MEAN GLUC 6571821 Calc Mean Gluc 117 mg/dL 08/07/2018 Unkn own GFR CALC 1117742 GFR Non Afr Amr >60 mL/min 08/07/2018 Un known GFR CALC 0075384 GFR Afr Amr >60 mL/min 08/07/2018 Unknow n COMPLETE BLOOD COUNT 1015488 WBC 9.1 10e9/L 08/08/19 19 Unknown COMPLETE BLOOD COUNT [id number] RBC 4.91 10e12/L 2018 Unknown COMPLETE BLOOD COUNT [id number] HEMOGLOBIN 15.2 g/dL 08/08/19 19 Unknown COMPLETE BLOOD COUNT [id number] HEMATOCRIT 45.1 % 08/08/19 19 Unknown COMPLETE BLOOD COUNT 8003572 MCV 91.9 fL 9 Unknown COMPLETE BLOOD COUNT 0875502 MCH 31.0 pg 9 Unknown COMPLETE BLOOD COUNT 5467923 MCHC 33.7 g/dL 9 Unknown COMPLETE BLOOD COUNT 7712021 PLATELET COUNT 217 10e9/L 06/2018 Unknown COMPLETE BLOOD COUNT 9680134 Mean Plt Volume 10.5 fL 06/2018 Unknown COMPLETE BLOOD COUNT 0154882 Neut Auto 63.4 % 9 Unknown COMPLETE BLOOD COUNT 7367875 Lymph Auto 25.4 % 08/08/19 19 Unknown COMPLETE BLOOD COUNT [id number] [place] Auto 9.4 % 9 Unknown COMPLETE BLOOD COUNT 9717496 Eos Auto 1.5 % 9 Unknown COMPLETE BLOOD COUNT 3925587 RDW 12.8 % 9 Unknown COMPLETE BLOOD COUNT [id number] Baso Auto 0.3 % 9 Unknown COMPLETE BLOOD COUNT [id number] Neutrophil Abs 5.77 10e9/L Unknown COMPLETE BLOOD COUNT 4733162 Lymphocyte Abs 2.31 10e9/L Unknown COMPLETE BLOOD COUNT [id number] Monocyte Abs 0.86 10e9/L 06/2018 Unknown COMPLETE BLOOD COUNT [id number] Eosinophil Abs 0.14 10e9/L Unknown COMPLETE BLOOD COUNT 6305201 RDW-SD 41.9 fL 9 Unknown COMPLETE BLOOD COUNT [id number] Basophil Abs 0.03 10e9/L 06/2018 Unknown GLYCOSYLATED HEMOGLOBIN TEST 88619 Hgb A1c 66635-0 5.7 % 0 08/07/2018 Unknown COMPLETE BLOOD COUNT [id number] WBC 8.4 10e9/L 01/31/20 12 Unknown COMPLETE BLOOD COUNT [id number] RBC 4.91 10e12/L 2011 Unknown COMPLETE BLOOD COUNT 6367612 HGB 15.6 g/dL 2 Unknown COMPLETE BLOOD COUNT 1068014 HCT DET 44.2 % 2 Unknown COMPLETE BLOOD COUNT 5414638 MCV 90.0 fL 2 Unknown COMPLETE BLOOD COUNT 1888322 MCH 31.8 pg 2 Unknown COMPLETE BLOOD COUNT 2123961 MCHC 35.3 g/dL 2 Unknown COMPLETE BLOOD COUNT 3126224 PLT 231 10e9/L 01/31/20 12 Unknown COMPLETE BLOOD COUNT [id number] MPV 10.2 fL 2 Unknown COMPLETE BLOOD COUNT 7786038 RENY % 60.9 % 2 Unknown COMPLETE BLOOD COUNT 5597761 LY % 26.5 % 2 Unknown COMPLETE BLOOD COUNT 3965966 MON % 10.7 % 2 Unknown COMPLETE BLOOD COUNT 0033467 EOS % 1.5 % 2 Unknown COMPLETE BLOOD COUNT 5707871 BASO % 0.4 % 2 Unknown COMPLETE BLOOD COUNT 5744170 RDW 12.5 % 2 Unknown COMPLETE BLOOD COUNT 1538400 ABS RENY 5.12 10e9/L 012 Unknown COMPLETE BLOOD COUNT [id number] ABS LYMPH 2.23 10e9/L 012 Unknown COMPLETE BLOOD COUNT [id number] ABS MONO 0.90 10e9/L 012 Unknown COMPLETE BLOOD COUNT [id number] ABS EOS 0.13 10e9/L 012 Unknown COMPLETE BLOOD COUNT [id number] ABS BASO 0.03 10e9/L 012 Unknown COMPLETE BLOOD COUNT 1790107 RDW-SD 40.5 fL 2 Unknown COMPREHENSIVE METABOLIC 78298 AST 31 U/L 2011 Unknown COMPREHENSIVE METABOLIC 40547 ALT 60 IU/L 2011 Unknown COMPREHENSIVE METABOLIC 62776 BUN 14 MG/DL 2011 Unknown COMPREHENSIVE METABOLIC 78668 ALBUMIN 4.1 GM/DL 2011 Unknown COMPREHENSIVE METABOLIC 72247 CHLORIDE 101 MMOL/L 01/30 Unknown COMPREHENSIVE METABOLIC 67381 BILI TOT 0.8 MG/DL 2011 Unknown COMPREHENSIVE METABOLIC 53444 ALK PHOS 60 U/L 2011 Unknown COMPREHENSIVE METABOLIC 28412 SODIUM 138 MMOL/L 01/30 Unknown COMPREHENSIVE METABOLIC 88207 CREATININE 0.99 MG/DL 01/05 Unknown COMPREHENSIVE METABOLIC 17691 CALCIUM 9.3 MG/DL 2011 Unknown COMPREHENSIVE METABOLIC 78753 POTASSIUM 3.8 MMOL/L 01/30 Unknown COMPREHENSIVE METABOLIC 91942 PROT TOT 6.5 GM/DL 2011 Unknown COMPREHENSIVE METABOLIC 34657 Glucose 108 MG/DL 2011 Unknown COMPREHENSIVE METABOLIC 91121 BICARB 29 MMOL/L 2011 Unknown COMPREHENSIVE METABOLIC 31411 ANION GAP 8 MEQ/L 2011 Unknown URIC ACID 82082 URIC ACID 7.7 MG/DL 01/31/2012 Unknown [facility] 11563 HDL TEST 30 MG/DL 01/31/2012 Unknown [facility] 36115 TRIG 199 MG/DL 01/31/2012 Unknown [facility] 22954 TEST LDL 125 MG/DL 01/31/2012 Unknown [facility] 96116 CHOL 195 MG/DL 01/31/2012 Unknown [facility] GROUP 72437 RCHOL/HDL 6.50 RATIO 01/31/2012 Unknow n GFR CALC 2299036 GFR AA >60 ML/MIN 01/31/2012 Unknown GFR CALC 4250586 GFR NON-AA >60 ML/MIN 01/31/2012 Unknown ERYTHROCYTE SEDIMENTATION RATE 81249 ESR 25 MM/HR 01/31/2012 Unknown T4 (THYROXINE) 81567 T4 9.5 UG/DL 02/24/2011 Unkn own COMPLETE BLOOD COUNT 82805 WBC 9.5 10e9/L 02/25/20 11 Unknown COMPLETE BLOOD COUNT 03955 RBC 4.71 10e12/L 2010 Unknown COMPLETE BLOOD COUNT 11363 HGB 14.5 g/dL 1 Unknown COMPLETE BLOOD COUNT 93357 HCT DET 42.2 % 1 Unknown COMPLETE BLOOD COUNT 29580 MCV 89.6 fL 1 Unknown COMPLETE BLOOD COUNT 29235 MCH 30.8 pg 1 Unknown COMPLETE BLOOD COUNT 96538 MCHC 34.4 g/dL 1 Unknown COMPLETE BLOOD COUNT 56142 PLT 193 10e9/L 02/25/20 11 Unknown COMPLETE BLOOD COUNT 97135 MPV 10.7 fL 1 Unknown COMPLETE BLOOD COUNT 04539 RENY % 58.7 % 1 Unknown COMPLETE BLOOD COUNT 12536 LY % 29.0 % 1 Unknown COMPLETE BLOOD COUNT 16729 MON % 10.0 % 1 Unknown COMPLETE BLOOD COUNT 86518 EOS % 1.6 % 1 Unknown COMPLETE BLOOD COUNT 53698 BASO % 0.7 % 1 Unknown COMPLETE BLOOD COUNT 08610 SCAN REVW FOOTNOTE 1 Unknown COMPLETE BLOOD COUNT 15638 RDW 12.5 % 1 Unknown COMPLETE BLOOD COUNT 37903 ABS RENY 5.55 10e9/L 011 Unknown COMPLETE BLOOD COUNT 74424 ABS LYMPH 2.74 10e9/L 011 Unknown COMPLETE BLOOD COUNT 82198 ABS MONO 0.95 10e9/L 011 Unknown COMPLETE BLOOD COUNT 76812 ABS EOS 0.15 10e9/L 011 Unknown COMPLETE BLOOD COUNT 61140 ABS BASO 0.07 10e9/L 011 Unknown COMPLETE BLOOD COUNT 40659 RDW-SD 40.5 fL 1 Unknown [facility] 50240 HDL TEST 34 MG/DL 02/24/2011 Unknown [facility] GROUP 38144 TRIG 95 MG/DL 02/24/2011 Unknown [facility] GROUP 38881 TEST LDL 95 MG/DL 02/24/2011 Unknown [facility] 55261 CHOL 148 MG/DL 02/24/2011 Unknown [facility] 96624 RCHOL/HDL 4.35 RATIO 02/24/2011 Unknow n COMPREHENSIVE METABOLIC 48039 AST 33 U/L 2010 Unknown COMPREHENSIVE METABOLIC 75921 ALT 64 IU/L 2010 Unknown COMPREHENSIVE METABOLIC 02478 BUN 10 MG/DL 2010 Unknown COMPREHENSIVE METABOLIC 95691 ALBUMIN 3.9 GM/DL 2010 Unknown COMPREHENSIVE METABOLIC 91426 CHLORIDE 105 MMOL/L 02/24 Unknown COMPREHENSIVE METABOLIC 42002 BILI TOT 0.6 MG/DL 2010 Unknown COMPREHENSIVE METABOLIC 77549 ALK PHOS 56 U/L 2010 Unknown COMPREHENSIVE METABOLIC 44619 SODIUM 140 MMOL/L 02/24 Unknown COMPREHENSIVE METABOLIC 25076 CREATININE 0.98 MG/DL 02/04 Unknown COMPREHENSIVE METABOLIC 18455 CALCIUM 8.9 MG/DL 2010 Unknown COMPREHENSIVE METABOLIC 64539 POTASSIUM 3.8 MMOL/L 02/24 Unknown COMPREHENSIVE METABOLIC 45934 PROT TOT 6.7 GM/DL 2010 Unknown COMPREHENSIVE METABOLIC 01001 Glucose 109 MG/DL 2010 Unknown COMPREHENSIVE METABOLIC 16592 BICARB 30 MMOL/L 2010 Unknown COMPREHENSIVE METABOLIC 22218 ANION GAP 5 MEQ/L 2010 Unknown THYROID STIMULATING HORMONE 45657 TSH 1.692 uIU/ML 02/24/2011 Unknown GFR CALC 3940160 GFR AA >60 ML/MIN 02/24/2011 Unknown GFR CALC 2296968 GFR NON-AA >60 ML/MIN 02/24/2011 Unknown HEPATIC FUNCTION PANEL A 50325 AST 25 U/L 08/24 Unknown HEPATIC FUNCTION PANEL A 83971 ALK PHOS 55 U/L 08/24 Unknown HEPATIC FUNCTION PANEL A 44129 BILI TOT 1.0 MG/DL 08/24 Unknown HEPATIC FUNCTION PANEL A 91753 ALT 60 IU/L 08/24 Unknown HEPATIC FUNCTION PANEL A 16195 BILI DIR 0.2 MG/DL 08/24 Unknown HEPATIC FUNCTION PANEL A 67280 ALBUMIN 4.4 GM/DL 08/24 Unknown HEPATIC FUNCTION PANEL A 99333 PROT TOT 7.0 GM/DL 08/24 Unknown VIRAL HEPATITIS PROFILE #2 28400 HEP AG BS NR Unknown VIRAL HEPATITIS PROFILE #2 18389 HEP C AB NR Unknown VIRAL HEPATITIS PROFILE #2 47430 HBC M AB NR Unknown VIRAL HEPATITIS PROFILE #2 06101 HEP A M AB NR Unknown THYROID STIMULATING HORMONE 27604 TSH 3.554 uIU/ML 03/02/2010 Unknown LIPID GROUP 62827 HDL TEST 44 MG/DL 03/02/2010 Unknown LIP[facility] GROUP 65997 TRIG 141 MG/DL 03/02/2010 Unknown [facility] GROUP 76896 TEST LDL 136 MG/DL 03/02/2010 Unknown LIPID GROUP 00585 CHOL 208 MG/DL 03/02/2010 Unknown [facility] 50722 RCHOL/HDL 4.73 RATIO 03/02/2010 Unknow n COMPLETE BLOOD COUNT 11216 WBC 9.6 10e9/L 03/02/20 10 Unknown COMPLETE BLOOD COUNT 34568 RBC 5.01 10e12/L 2009 Unknown COMPLETE BLOOD COUNT 91731 HGB 15.3 g/dL 0 Unknown COMPLETE BLOOD COUNT 15480 HCT DET 45.5 % 0 Unknown COMPLETE BLOOD COUNT 40862 MCV 90.8 fL 0 Unknown COMPLETE BLOOD COUNT 99012 MCH 30.5 pg 0 Unknown COMPLETE BLOOD COUNT 50412 MCHC 33.6 g/dL 0 Unknown COMPLETE BLOOD COUNT 94409 PLT 193 10e9/L 03/02/20 10 Unknown COMPLETE BLOOD COUNT 19672 MPV 9.6 fL 0 Unknown COMPLETE BLOOD COUNT 63208 RENY % 59.0 % 0 Unknown COMPLETE BLOOD COUNT 07640 LY % 30.0 % 0 Unknown COMPLETE BLOOD COUNT 13416 MON % 9.5 % 0 Unknown COMPLETE BLOOD COUNT 36875 EOS % 1.3 % 0 Unknown COMPLETE BLOOD COUNT 09254 BASO % 0.2 % 0 Unknown COMPLETE BLOOD COUNT 34042 RDW 12.5 % 0 Unknown COMPLETE BLOOD COUNT 89638 ABS RENY 5.66 10e9/L 010 Unknown COMPLETE BLOOD COUNT 55939 ABS LYMPH 2.88 10e9/L 010 Unknown COMPLETE BLOOD COUNT 51440 ABS MONO 0.91 10e9/L 010 Unknown COMPLETE BLOOD COUNT 38190 ABS EOS 0.12 10e9/L 010 Unknown COMPLETE BLOOD COUNT 63510 ABS BASO 0.02 10e9/L 010 Unknown COMPLETE BLOOD COUNT 48649 RDW-SD 40.9 fL 0 Unknown GFR CALC 3834370 GFR AA >60 ML/MIN 03/02/2010 Unknown GFR CALC 4330202 GFR NON-AA >60 ML/MIN 03/02/2010 Unknown FREE T4 29833 FREE T4 1.14 NG/DL 03/02/2010 Unknown COMPREHENSIVE METABOLIC 64145 AST 31 U/L 2009 Unknown COMPREHENSIVE METABOLIC 74013 ALT 85 IU/L 2009 Unknown COMPREHENSIVE METABOLIC 84813 BUN 15 MG/DL 2009 Unknown COMPREHENSIVE METABOLIC 17872 ALBUMIN 4.0 GM/DL 2009 Unknown COMPREHENSIVE METABOLIC 52555 CHLORIDE 104 MMOL/L 03/02 Unknown COMPREHENSIVE METABOLIC 98568 BILI TOT 0.5 MG/DL 2009 Unknown COMPREHENSIVE METABOLIC 29718 ALK PHOS 64 U/L 2009 Unknown COMPREHENSIVE METABOLIC 16407 SODIUM 139 MMOL/L 03/02 Unknown COMPREHENSIVE METABOLIC 10420 CREATININE 0.94 MG/DL 02/04 Unknown COMPREHENSIVE METABOLIC 18203 CALCIUM 9.2 MG/DL 2009 Unknown COMPREHENSIVE METABOLIC 76753 POTASSIUM 3.9 MMOL/L 03/02 Unknown COMPREHENSIVE METABOLIC 57092 PROT TOT 6.8 GM/DL 2009 Unknown COMPREHENSIVE METABOLIC 55598 Glucose 102 MG/DL 2009 Unknown COMPREHENSIVE METABOLIC 70205 BICARB 28 MMOL/L 2009 Unknown COMPREHENSIVE METABOLIC 94764 ANION GAP 7 MEQ/L 2009 Unknown Procedures Procedure Codes Date AEROBIC WOUND CULTURE & STN CPT-4: 06481 08/09/2018 CEFTRIAXONE SODIUM INJECTION CPT-4: J0696 08/09/2018 THER/PROPH/DIAG INJ SC/IM CPT-4: 25248 08/09/2018 ROUTINE VENIPUNCTURE CPT-4: 14228 08/07/2018 COMPLETE CBC W/AUTO DIFF WBC CPT-4: 52089 08/07/2018 COMPREHEN METABOLIC PANEL CPT-4: 77308 08/07/2018 ASSAY THYROID STIM HORMONE CPT-4: 79116 08/07/2018 LIPID PANEL CPT-4: 84495 08/07/2018 A1C HPLC CPT-4: 56128 08/07/2018 ROUTINE VENIPUNCTURE CPT-4: 76653 12/26/2017 ASSAY THYROID STIM HORMONE CPT-4: 51757 12/26/2017 COMPREHEN METABOLIC PANEL CPT-4: 51513 12/26/2017 COMPLETE CBC W/AUTO DIFF WBC CPT-4: 55862 12/26/2017 LIPID PANEL CPT-4: 26427 12/26/2017 A1C HPLC CPT-4: 72776 12/26/2017 IIV4 VACCINE 3 YRS+ IM AND UP CPT-4: 82919 04/13/2017 IMMUNIZATION ADMIN CPT-4: 14038 04/13/2017 THER/PROPH/DIAG INJ SC/IM CPT-4: 62060 01/21/2013 METHYLPREDNISOLONE 40 MG INJ CPT-4: J1030 01/21/2013 TRIAMCINOLONE ACET INJ NOS CPT-4: J3301 01/21/2013 URINALYSIS NONAUTO W/O SCOPE CPT-4: 96157 01/31/2012 ROUTINE VENIPUNCTURE CPT-4: 77987 01/31/2012 COMPREHEN METABOLIC PANEL CPT-4: 36291 01/31/2012 COMPLETE CBC W/AUTO DIFF WBC CPT-4: 28621 01/31/2012 RBC SED RATE AUTOMATED CPT-4: 93655 01/31/2012 LIPID PANEL CPT-4: 35815 01/31/2012 ASSAY OF BLOOD/URIC ACID CPT-4: 02221 01/31/2012 ROUTINE VENIPUNCTURE CPT-4: 10285 08/24/2010 HEPATIC FUNCTION PANEL CPT-4: 99196 08/24/2010 C FUNGUS CPT-4: 0578736 03/01/2010 FLU VACCINE 3 YRS & > IM UP 64 CPT-4: 22165 0 IMMUNIZATION ADMIN CPT-4: 04747 12/31/2009 Vital Signs Date Vital 08/16/2018 Blood [...] 1: 138/82 Code: 8480-6 BMI: 52.1 Code: 35232-3 Heart Rate 1: 86 bpm Height: 5'8" Respiratory Rate: 24 bpm SpO2: 98% Tempera ture: 36.4 (C) / 97.6 (F) Weight: 348 lbs 08/05/2016 Blood Pressure 1: 140/78 Code: 8480-6 BMI: 52.4 Code: 07927-2 Heart Rate 1: 94 bpm Height: 5'8" Respiratory Rate: 20 bpm SpO2: 99% Tempera ture: 36.4 (C) / 97.6 (F) Weight: 350 lbs 06/15/2016 Blood Pressure 1: 146/88 Code: 8480-6 Heart Rate 1: 94 bpm Respiratory Rate: 24 bpm SpO2: 97% Temperature: 36.2 (C) / 97.1 (F) We ight: 346 lbs 02/15/2016 Blood Pressure 1: 142/76 Code: 8480-6 BMI: 50.5 Code: 21049-2 Heart Rate 1: 74 bpm Height: 5'8" [...] 1: 142/80 Code: 8480-6 BMI: 50.2 Code: 38133-8 Heart Rate 1: 82 bpm Height: 5'8" Respiratory Rate: 18 bpm SpO2: 98% Tempera ture: 36.7 (C) / 98.0 (F) Weight: 335 lbs 10/14/2014 Blood Pressure 1: 142/86 Code: 8480-6 BMI: 48.8 Code: 94642-5 Heart Rate 1: 80 bpm Height: 5'10" Respiratory Rate: 20 bpm Temperature: 36 .9 (C) / 98.4 (F) Weight: 340 lbs 09/03/2014 Blood Pressure 1: 124/80 Code: 8480-6 BMI: 49.6 Code: 50244-7 Heart Rate 1: 84 bpm Height: 5'10" Respiratory Rate: 22 bpm Temperature: 36 .4 (C) / 97.6 (F) Weight: 346 lbs 07/25/2013 Blood Pressure 1: 142/84 Code: 8480-6 BMI: 47.9 Code: 66463-6 Heart Rate 1: 68 bpm Height: 5'10" Respiratory Rate: 20 bpm SpO2: 98% Tempera ture: 36.1 (C) / 97.0 (F) Weight: 334 lbs 01/21/2013 Blood Pressure 1: 126/84 Code: 8480-6 BMI: 46.5 Code: 21362-6 Heart Rate 1: 78 bpm Height: 5'10" Respiratory Rate: 18 bpm Temperature: 36 .3 (C) / 97.4 (F) Weight: 324 lbs 07/25/2012 Blood Pressure 1: 128/68 Code: 8480-6 BMI: 47.9 Code: 26713-4 Heart Rate 1: 80 bpm Height: 5'9" Temperature: 36.6 (C) / 97.9 (F) Weight: 326 lbs 07/10/2012 Blood Pressure 1: 122/72 Code: 8480-6 BMI: 46.7 Code: 48999-0 Heart Rate 1: 78 bpm Height: 5'9" Temperature: 36.1 (C) / 97.0 (F) Weight: 318 lbs 01/31/2012 Blood Pressure 1: 126/86 Code: 8480-6 BMI: 46.7 Code: 88089-4 Heart Rate 1: 80 bpm Height: 5'9" Respiratory Rate: 20 bpm Temperature: 36 .6 (C) / 97.9 (F) Weight: 318 lbs 12/21/2011 Blood Pressure 1: 128/82 Code: 8480-6 BMI: 46.7 Code: 31770-4 Heart Rate 1: 72 bpm Height: 5'9" Respiratory Rate: 20 bpm Temperature: 36 .4 (C) / 97.6 (F) Weight: 318 lbs 09/26/2011 Blood Pressure 1: 138/82 Code: 8480-6 BMI: 46.1 Code: 98711-5 Heart Rate 1: 74 bpm Height: 5'9" Temperature: 36.6 (C) / 97.9 (F) Weight: 314 lbs 05/12/2011 Blood Pressure 1: 130/70 Code: 8480-6 BMI: 46.0 Code: 61795-0 Heart Rate 1: 68 bpm Height: 5'9" Temperature: 36.4 (C) / 97.5 (F) Weight: 313 lbs 02/09/2011 Blood Pressure 1: 124/80 Code: 8480-6 BMI: 46.0 Code: 88140-1 Heart Rate 1: 80 bpm Height: 5'9" Respiratory Rate: 20 bpm Temperature: 36 .8 (C) / 98.2 (F) Weight: 313 lbs 08/24/2010 Blood Pressure 1: 124/72 Code: 8480-6 BMI: 47.3 Code: 28799-1 Heart Rate 1: 68 bpm Height: 5'9" Temperature: 36.2 (C) / 97.1 (F) Weight: 323 lbs 06/21/2010 Blood Pressure 1: 116/82 Code: 8480-6 Heart Rate 1: 72 bpm Temperature: 36.3 (C) / 97.4 (F) Weight: 327 lbs 05/19/2010 Blood Pressure 1: 132/84 Code: 8480-6 BMI: 48.9 Code: 55205-1 Heart Rate 1: 80 bpm Height: 5'9" [...] follow up 02/09/2011 Yearly Checkup/Physical 08/24/2010 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 with nasal [...] ago Encounters Encounter Performer Location Codes Date () OFFICE/OUTPATIENT VISIT EST Diagnosis: Cellulitis of left lower limb[ICD10: L03.116] Diagnosis: Methicillin resistant Staphylococcus aureus infection, unspecified site[ICD10: A49.02] Diagnosis: Essential (primary) hypertension[ICD10: I10] Jahaira DANIELLE DO [facility] CPT-4: 31870 08/16/2018 ([id number]) OFFICE/OUTPATIENT VISIT EST Diagnosis: Cellulitis of left lower limb[ICD10: L03.116] Diagnosis: Essential (primary) hypertension[ICD10: I10] Jahaira DANIELLE [employer] 1 [facility] CPT-4: 01537 08/09/2018 ([id number]) OFFICE/OUTPATIENT VISIT EST Diagnosis: Hyperglycemia, unspecified[ICD10: R73.9] Diagnosis: Essential (primary) hypertension[ICD10: I10] Diagnosis: Tinea pedis[ICD10: B35.3] Diagnosis: Cellulitis of left lower limb[ICD10: L03.116] Jahaira DANIELLE [employer] [facility] CPT-4: 02994 08/07/2018 ([id number]) OFFICE/OUTPATIENT VISIT EST Diagnosis: Pain in left knee[ICD10: M25.562] Diagnosis: Essential (primary) hypertension[ICD10: I10] Diagnosis: Other hyperlipidemia[ICD10: E78.49] Diagnosis: Hyperglycemia, unspecified[ICD10: R73.9] Jahaira Torres KAYLENE SONAVANIRENETTA Windy DANIELLE [employer] [facility] CPT-4: 73009 12/26/2017 ([id number]) PREV VISIT EST AGE 40-64 Diagnosis: Encounter for general adult medical examination without abnormal findings[ICD10: Z00.00] Diagnosis: Essential (primary) hypertension[ICD10: I10] Diagnosis: Obstructive sleep apnea (adult) (pediatric)[ICD10: G47.33] Diagnosis: Pain in left knee[ICD10: M25.562] Diagnosis: FLU VACCINE[ICD10: Z23] Jahaira WALKER [employer] [facility] CPT-4: 82581 04/13/2017 OFFICE/OUTPATIENT VISIT EST Diagnosis: Sleep apnea, unspecified[ICD10: G47.30] Diagnosis: Abnormal weight gain[ICD10: R63.5] Madelaine ACOSTA [employer] Veh[employer] [facility] CPT-4: 93971 08/05/2016 ([id number]) OFFICE/OUTPATIENT VISIT EST Diagnosis: Pain in right knee[ICD10: M25.561] Amanda ACOSTA [employer] [facility] CPT-4: 27613 06/15/2016 ([id number]) OFFICE/OUTPATIENT VISIT EST Diagnosis: Acute upper respiratory infection, unspecified[ICD10: J06.9] Amanda DANIELLE [facility] CPT-4: 11166 02/15/2016 ([id number]) OFFICE/OUTPATIENT VISIT EST Diagnosis: Pain in right knee[ICD10: M25.561] Aure RomoLouisa ADDY [facility] CPT-4: 95305 11/23/2015 ([id number]) OFFICE/OUTPATIENT VISIT EST Diagnosis: Essential (primary) hypertension[ICD10: I10] Diagnosis: Unspecified contact dermatitis, unspecified cause[ICD10: L25.9] Diagnosis: Tinea pedis[ICD10: B35.3] Amanda AGUIRRE [facility] CPT-4: 35231 11/03/2015 ([id number]) PREV VISIT EST AGE 40-64 Diagnosis: Encounter for other general examination[ICD10: Z00.8] Amanda HERNANDEZLINE Windy DANIELLE [facility] CPT-4: 38022 08/27/2015 ([id number]) OFFICE/OUTPATIENT VISIT EST Diagnosis: DERMATITIS NOS[ICD9: 692.9] Diagnosis: FOLLICULITIS[ICD9: 704.8] Aure AGUIRRE [facility] CPT-4: 74057 10/14/2014 ([id number]) PREV VISIT EST AGE 40-64 Diagnosis: ROUTINE MEDICAL EXAM[ICD9: V70.0] Diagnosis: PAIN, LOWER BACK[ICD9: 724.2] Diagnosis: SPASM OF MUSCLE[ICD9: 728.85] Nayana Cale AURE Windy DANIELLE [facility] CPT-4: 60181 09/03/2014 OFFICE/OUTPATIENT VISIT EST Diagnosis: COUGH[ICD9: 786.2] Diagnosis: WHEEZING[ICD9: 786.07] Diagnosis: SINUSITIS, ACUTE[ICD9: 461.9] Nayana VanLindaelaere AURE DemetriusLouisa ADDY [facility] CPT-4: 88009 07/25/2013 OFFICE/OUTPATIENT VISIT EST Diagnosis: COUGH[ICD9: 786.2] Diagnosis: BRONCHITIS, ACUTE[ICD9: 466.0] Nayana VanBecelaere AURE Demetrius Louisa ADDY DO [facility] CPT-4: 69557 01/21/2013 ([id number]) PREV VISIT EST AGE 18-39 Diagnosis: ROUTINE MEDICAL EXAM[ICD9: V70.0] Diagnosis: HYPERTENSION[ICD9: 401.9] Diagnosis: Hyperlipidemia[ICD9: 272.4] Aure PANG DO [facility] CPT-4: 71221 07/25/2012 OFFICE/OUTPATIENT VISIT EST Diagnosis: HYPERTENSION[ICD9: 401.9] Lazara Castillo AURE Temple [employer]NTIM[employer]HY Berkowitz O [facility] CPT-4: 83454 07/10/2012 OFFICE/OUTPATIENT VISIT EST Diagnosis: LYMPHADENOPATHY[ICD9: 785.6] Diagnosis: Foot pain[ICD9: 729.5] Diagnosis: TINEA PEDIS[ICD9: 110.4] Diagnosis: HYPERTENSION[ICD9: 401.9] Aure PRATHER DemetriusLouisa [employer]USTÍN URBANLj [facility] CPT-4: 09306 01/31/2012 ([id number]) OFFICE/OUTPATIENT VISIT EST Diagnosis: CERVICALGIA[ICD9: 723.1] Diagnosis: SPASM OF MUSCLE[ICD9: 728.85] Aure Agustíncatiehusam BRADSHAWAURE S. AGUSTÍNTIMOTHY [facility] CPT-4: 20174 12/21/2011 OFFICE/OUTPATIENT VISIT EST Diagnosis: ACUTE PAIN NEC[ICD9: 338.19] Diagnosis: HYPERTENSION[ICD9: 401.9] Aure PRATHER DemetriusLouisa AGUSTÍN AGUIRRE [facility] CPT-4: 55539 09/26/2011 OFFICE/OUTPATIENT VISIT EST Diagnosis: COUGH[ICD9: 786.2] Diagnosis: SINUSITIS, ACUTE[ICD9: 461.9] Diagnosis: PHARYNGITIS, ACUTE[ICD9: 462] Aure Agustíntimothy Temple AGUSTÍNTIMOTHY [facility] CPT-4: 95274 05/12/2011 OFFICE/OUTPATIENT VISIT EST Diagnosis: HYPERTENSION[ICD9: 401.9] Diagnosis: ELEV TRANSAMINASE/LDH[ICD9: 790.4] Diagnosis: Thoracic back pain[ICD9: 724.1] Aure PRATHER DemetriusLouisa AGUSTÍNTIMOTHY [facility] CPT-4: 58434 02/09/2011 ([id number]) PREV VISIT EST AGE 18-39 Aure [facility] CPT-4: 08627 08/24/2010 ([id number]) OFFICE/OUTPATIENT VISIT EST Aure MACKAY SLouisa [facility] CPT-4: 94923 06/21/2010 ([id number]) OFFICE/OUTPATIENT VISIT EST Aure MACKAY SLouisa [facility] CPT-4: 02614 05/19/2010 ([id number]) OFFICE/OUTPATIENT VISIT, EST Aure [facility] CPT-4: 66885 03/01/2010 ([id number]) OFFICE/OUTPATIENT VISIT, EST Aure [facility] CPT-4: 94659 10/26/2009 ([id number]) OFFICE/OUTPATIENT VISIT, EST Aure [facility] [employer] CPT-4: 63168 09/22/2009 ([id number]) OFFICE/OUTPATIENT VISIT, EST Aure [facility] CPT-4: 16185 07/27/2009 Plan of Care Planned Activity Notes Codes Status Date Visit Diagnosis Plan: Cellulitis of left lower limb Di scussion: much improved with no more swelling. finish out antibiotics and call office if redness continues next week. ICD-9 : 682.7 ICD-10 : L03.116 08/16/2018 Visit Diagnosis Plan: Essential (primary) hypertension Discussion: dc bystolic but continue with lisinopril. elevated bp most likely was r/t pain, anxiety, and infection. instructed to monitor bp at work and to call office with readings. ICD-9 : 401.9 ICD-10 : I10 08/16/2018 Appointment: Jahaira Torres [address] [place] [address] FOLLOW UP 08/16/2018 Patient Education: High Blood Pressure Co mpleted 08/16/2018 Visit Diagnosis Plan: Cellulitis of left [...] ICD-9 : 682.6 ICD-10 : L03.116 08/09/2018 Visit Diagnosis Plan: Essential (primary) hypertension Discussion: sample of bystolic given to patient with instructions on use. discussed with patient that bp may be elevated due to infection and pain but to take bystolic daily and will recheck bp at follow up appt next week. ICD-9 : 401.9 ICD-10 : I10 08/09/2018 Appointment: [facility] FO[facility] UP 08/09/2018 Patient Education: High Blood Pressure Co mpleted 08/09/2018 Visit Diagnosis Plan: Essential (primary) hypertension Discussion: Return for BP check once infection gone. Discussion: Return for BP check ICD-9 : 401.9 ICD-10 : I10 08/07/2018 Visit Diagnosis Plan: Tinea pedis Discussion: Diflucan and topical ointment prescribed to take as directed. keep feet clean and dry and take shoes/socks off as much as possible. purchase socks that wisk away moisture Discussion: Diflucan ICD-9 : 110.4 ICD-10 : B35.3 08/07/2018 Visit Diagnosis Plan: Cellulitis of left lower limb Di scussion: bactrim bid for 10 days. call or rtc for new or worsening symptoms. ICD-9 : 682.6 ICD-10 : L03.116 08/07/2018 Visit Diagnosis Plan: Hyperglycemia, unspecified Discu ssion: Check CMP, HbA1C ICD-9 : 790.29 ICD-10 : R73.9 08/07/2018 Appointment: [facility] [facility] 08/07/2018 Patient Education: nystatin-triamcinolone- [employer] Coupon [id number] [email or web address] Completed 08/07/2018 Patient Education: High Blood Pressure [...] ICD-10 : M25.562 12/26/2017 Appointment: [facility]a Torres [facility] [facility] 12/26/2017 Patient Education: Patient Medication Summary Completed 12/26/2017 Visit Diagnosis Plan: Pain in left knee Discussion: me loxicam refilled at this time. ICD-9 : 719.46 ICD-10 : M25.562 04/13/2017 Visit Diagnosis Plan: Obstructive sleep apnea (adult) (pediatric) Discussion: uses cpap daily. new order sent to [facility] to adjust cpap machine for patient. ICD-9 : 327.23 ICD-10 : G47.33 04/13/2017 Visit Diagnosis Plan: Essential (primary) hypertension Discussion: stable. continue current medications. fasting labs to be obtained next week. ICD-9 : 401.9 ICD-10 : I10 04/13/2017 Visit Diagnosis Plan: Encounter for [facility] adult medical examination without abnormal findings Discussion: received influenza vaccine a t this time. states he's up to date on tdap. will rtc next week for fasting labs. ICD-9 : V70.9 ICD-10 : Z00.00 04/13/2017 Appointment: Jahaira Torres [address] [facility] MEDICATION REVIEW 04/13/2017 Patient Education: Patient Medication Summary Completed 04/13/2017 Visit Plan: Discussed that he is at risk for JAVIER due to weight and neck circumfrence. Completed apena questionaire and sleep study requisition Discussed that Mobic is not generally recognized to be a likely culprit for weight gain so patient wants refill. Will await results of sleep study. 08/05/2016 Appointment: Madelaine Li [facility]Ptel: [phone] [facility] MEDICATION REVIEW 08/05/2016 Patient Education: Patient Medication Summary Completed 08/05/2016 Visit Diagnosis Plan: Pain in right knee Discussion: R equested xray report from [facility] as above Can restart meloxicam Ice, elevate, rest, brace, etc Work on weight loss Will need to refer to Ortho, MRI, PT, joint injection, etc if mary beth n not improving ICD-9 : 719.46 ICD-10 : M25.561 06/15/2016 Appointment: Amanda Squires [address] [place], [place] [id number] ACUTE ILLNESS 06/15/2016 Patient Education: Patient Medication Summary Completed 06/15/2016 Visit Plan: Exam fairly benign but with symptoms and length of time, will treat as above Coricidin HBP Monitor BP since his SBP is borderline today Vicks, humidifier, nasal rinses, vitamin C, etc Follow up PRN 02/15/2016 Appointment: Amanda Squires [address] [place] [address] ACUTE ILLNESS 02/15/2016 Patient Education: Patient Medication Summary Completed 02/15/2016 Visit Plan: Check right knee x-ray Mobic 15mg daily with pepcid 20mg daily Discussed weight loss Straight leg raises and bicycling 11/23/2015 Appointment: Aure Danielle WPtel: [address] [place], [place] [address] [place] 11/18 lm~sl 11/22 lm~sl ACUTE ILLNESS 11/23/2015 Patient Education: Patient Medication Summary Completed 11/23/2015 Care Plan: X-RAY EXAM OF KNEE 1 [place] 2 [place] : [address]-8 Pending 11/23/2015 Visit Plan: Refill on lisinopril given N eeds labs updated - had wellness visit coded 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 - mag lab order given for cbc, cmp, lipids, tsh, free t4, psa Creams as above Follow up if not improving either skin issue 11/03/2015 Appointment: Amanda Squires [address] [place], [place] [phone] [place] 11/01 lm`sl 11/02 lm~sl ACUTE ILLNESS 11/03/2015 Patient Education: Patient Medication Summary Completed 11/03/2015 Patient Education: [facility] - [employer]aving [employer] - Lisinopril - 18-64 - Dynamic Portal ID Completed 11/03/2015 Visit Plan: Physical wnl Form completed 08/27/2015 Appointment: Shaw Amanda [address] [place], [place] [phone] 08/25 lm ~sl PHYSICAL 08/27/2015 Patient Education: Patient Medication Summary Completed 08/27/2015 Visit Plan: Bactrim and Medrol Dose Pack Call in 1week Claritin 10mg q AM and Benadryl 25mg q HS Check fasting lab 10/14/2014 Appointment: Aure Danielle WPtel: [address] [place], [place] [phone] 10/13/2014 lm FOLLOW UP 10/14/2014 Patient Education: Patient Medication Summary Completed 10/14/2014 Patient Education: [facility] - [employer] - Lisinopril - 18-64 - Dynamic Portal ID Completed 10/14/2014 Visit Plan: Zorvolex 35 mg PO TID Flexer il 10 mg PO TID as needed for muscle spasm. Ultram 50 mg PO as needed for severe pain. Low back stretches several times daily. Instructed to follow-up if symptoms not improved. 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 Discussed that would like to obtain fasting labs: CBC, CMP, TSH, Free T4 and Lipid panel. 07/25/2012 Appointment: Lazara Castillo WPtel: [address] [place] [address] Annual Well Visit 07/25/2012 Patient Education: Patient Medication Summary Completed 07/25/2012 Appointment: Lazara Castillo WPtel: [address] [place] [address] ACUTE ILLNESS 07/10/2012 Patient Education: Patient Medication Summary Completed 07/10/2012 Appointment: Lazara Castillo WPtel: [address] [place], [place] [phone] 05/02 left message...05/03 no showed appt FOLLOW UP 05/03/2012 Appointment: Lazara Castillo WPtel: [address] [place] [address] ACUTE ILLNESS 01/31/2012 Patient Education: Patient Medication Summary Completed 01/31/2012 Visit Plan: OMT done Daily stretches Fin janet medrol dose pack Restart flexeril q HS Topical biofreeze 12/21/2011 Appointment: Aure Danielle WPtel: [address] [place] [address] ACUTE ILLNESS 12/21/2011 Patient Education: Patient Medication Summary Completed 12/21/2011 Appointment: Lazara Castillo WPtel: [address] [place] [address] ACUTE ILLNESS 11/14/2011 Visit Plan: left foot x-ray. fasting lab s: CBC, CMP, TSH, Free T4, uric acid and lipids. Left foot pain. Will continue current dose of hypertension medication. Discussed that will consider podiatry or ortho consult if RICE and Ibuprofen does not help. Pt. 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 Pt. will come in for BP check when [employer] [facility] is over. 09/26/2011 Appointment: Lazara Castillo WPtel: [address] [place], [place] [phone] ACUTE ILLNESS 09/26/2011 Patient Education: Patient Medication Summary Completed 09/26/2011 Visit Plan: Doxycycline, medrol dose pac k and codeine/guiaf cough syrup. All 3 meds were phoned into [facility]. Pt. report he has recently been around a family member who "had pneumonia." Discussed that if no improvment may need lab draw for CBC and mycoplasma. Pt. states he is traveling next week and "can't be sick." Pt. is aware he needs to notify if symptoms worsen or fever occurs. 05/12/2011 Appointment: Lazara Castillo WPtel: [address] [place] [address] ACUTE ILLNESS 05/12/2011 Patient Education: Patient Medication Summary Completed 05/12/2011 Visit Plan: Check fasting lab including LFTs Continue current lisinopril dose OMT done to back plus daily stretches including towel stretch 02/09/2011 Appointment: Aure Danielle WPtel: [address] [place] [address] FOLLOW UP 02/09/2011 Patient Education: Patient Medication Summary Completed 02/09/2011 Appointment: Lazara Castillo WPtel: [address] [place] [address] PHYSICAL 08/24/2010 Patient Education: Patient Medication Summary Completed 08/24/2010 Visit Plan: Saline nasal flushes prn. Ty lenol/Motrin prn headache. Notify if persists/symptoms worsening. Veramyst BID Repeat liver enzymes next mo--discussed possible HENDERSON and may need GI eval and even liver biopsy 06/21/2010 Appointment: Aure Danielle WPtel: [address] [place] [address] ACUTE ILLNESS 06/21/2010 Patient Education: Patient Medication Summary Completed 06/21/2010 Visit Plan: will give handout for planta ar fasciitis. Discussed stretching regimen. Flexeril. Discussed podiatry consult if no improvement 05/19/2010 Appointment: Lazara Castillo WPtel: [address] [place], [place] [phone] ACUTE ILLNESS 05/19/2010 Patient Education: Patient Medication Summary Completed 05/19/2010 Appointment: Aure Danielle WPtel: [address] [place], [place] [phone] [place] FOLLOW UP 03/01/2010 Patient Education: Patient Medication Summary Completed 03/01/2010 Appointment: Aure Danielle WPtel: [address] [place], [place] [phone] [place] INJECTION 12/31/2009 Patient Education: Patient Medication Summary Completed 12/31/2009 Visit Plan: Use Selsun Blue to wash neck daily 10/26/2009 Appointment: Aure Danielle WPtel: [address] [place], [place] [phone] FOLLOW UP 10/26/2009 Patient Education: Patient Medication Summary Completed 10/26/2009 Visit Plan: Vestibular exercises Veramys t BID Meclizine BID Decrease Lisinopril to 1/2 tab QD BP check in 2wks 09/22/2009 Appointment: Aure Danielle WPtel: [address] [place], [place] [phone] ER Follow UP 09/22/2009 Patient Education: Patient Medication Summary Completed 09/22/2009 Visit Plan: Cont Lisinopril Daily back s tretches Use Mobic, Flexeril prn Betamethasone BID for 1wk for rash 07/27/2009 Appointment: Aure Danielle WPtel: [address] [place], [place] [phone] FOLLOW UP 07/27/2009 Patient Education: Patient Medication [...] to follow-up if symptoms not improved. . 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 Pt. 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 Pt. will come in for BP check when [facility] is over. . Doxycycline, medrol dose pack and code ine/guiaf cough syrup. All 3 meds were phoned into [employer]. Pt. report he has recently been around [...] biopsy . will give handout for amanda colmenares is. Discussed stretching regimen. Flexeril. Discussed podiatry [...]
--- OUTSIDE RECORDS SUMMARY | 2019-08-04 15:31 | XMS REPORT ---
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 Role Phone YOHANA ORTIZ Unavailable PROBLEMS Type Condition ICD9-CM Code AZZ30-DF Code Onset Dates Condition S tatus SNOMED Code Problem Penile swelling N48.89 Active 3359 74657 Problem Other obesity due to excess calories E66.09 Active 23486387420474 Problem Balanitis N48.1 Active 78953928 Problem Herniated lumbar disc 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 Active 00219532 Problem Sleep apnea in adult G47.30 Active 69828169 Problem Essential hypertension I10 Active 41721391 Problem Body mass index (BMI) of 40.0-44.9 in adult Z68.41 Active 136828404 ALLERGIES No Known Allergies ENCOUNTERS Encounter Location Date Diagnosis [facility] [address] [id number] May, Screening for tuberculosis Z 11.1 [facility] [place] [address] [id number] Jan, Penile swelling N48.89 ; Bal anitis N48.1 and BMI 40.0- 44.9, adult Z68.41 [facility] [address] [place] [id number] [place] [id number] Jan, Dysfunction of right eustach jason tube H69.81 and Ear pain, right H92.01 [facility] [address] [place] [address] [id number] [place] [phone] Aug, Visit for TB skin test Z11.1 and Screening for tuberculosis Z11.1 [facility] [address] [place] [id number] [place] [address] [id number] Jun, Sinusitis J32.9 and Allergic rhinitis J30.9 [facility] [address] [id number] [address] [place] [phone] Jun, [facility] [address] [id number] [address] [place] [phone] Jun, [facility] [address] [id number] [address] [place] [phone] Sep, [facility] [address] [id number] [address] [place] [phone] Sep, [facility] [address] [id number] [address] [place] [phone] Apr, [facility] [address] [id number] [address] [place] [phone] Apr, [facility] [address] [id number] [address] [place] [phone] Mar, [facility] [address] [id number] [address] [place] [phone] Mar, IMMUNIZATIONS No Known Immunizations SOCIAL HISTORY Never Assessed 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 [facility] 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 OF CARE Activity Details Follow Up prn Reason: VITAL SIGNS Height 68 in 2017-01-04 Weight 312 lbs 2017-01-04 Temperature 97 degrees Fahrenheit 2017-01-04 Heart Rate 82 bpm 2017-01-04 Respiratory Rate 18 2017-01-04 BMI 47.43 kg/m2 2017-01-04 Blood pressure systolic 134 mmHg 2017-01-04 Blood pressure diastolic 78 mmHg 2017-01-04 MEDICATIONS Medication Instructions Dosage Frequency Start Date End Date Duration S tatus Lisinopril 20 mg take 1 tablet (20 mg) by oral route o nce daily Sep, Active Bactrim DS 800-160 MG Orally Twice a day 1 tablet 12h Jan, 2 017 Jan, 10 day(s) Active Diflucan 150 MG Orally once and repeat in 3 days with fu ll glass of water. 1 tablet Jan, Jan, 10 day(s) Active Elocon 0.1 % Externally twice a day sparingly 1 application to affe cted area Jan, Jan, 07 days Active Meloxicam Active RESULTS No Results PROCEDURES Procedure Date Ordered Result Body Site URINE CULTURE/COLONY COUNT Jan 04, 2017 URINALYSIS, AUTO, W/O SCOPE Jan 04, 2017 INSTRUCTIONS MEDICATIONS ADMINISTERED No Known Medications MEDICAL (GENERAL) HISTORY Type Description Date Medical History hypertension Medical History obesity Medical History herniated disc Medical History sleep apnea wears CPAP Medical History STATE HEP A (ADULT) DX Surgical History Left ACL 1994 Surgical History Gall bladder 1995
--- OUTSIDE RECORDS SUMMARY | 2019-08-04 15:31 | XMS REPORT ---
Author Author Kaushal Hernandez Doctor Organization [facility] Address Unknown Phone Unavailable Care Team Providers Care Caustic Purification Operator Name Role Phone Migration, Doctor Unavailable Unavailable PROBLEMS Type Condition ICD9-CM Code ZFA18-VE Code Onset Dates Condition S tatus SNOMED Code Problem Penile swelling N48.89 Active 3359 97030 Problem Balanitis N48.1 Active 50365153 Problem Other obesity due to excess calories E66.09 Active 46172679323590 Problem Sleep apnea in adult G47.30 Active 11266700 Problem Herniated lumbar disc 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 Active 76544611 Problem Body mass index (BMI) of 40.0-44.9 in adult Z68.41 Active 102389450 Problem Essential hypertension I10 Active 37610749 ALLERGIES No Information ENCOUNTERS Encounter Location Date Diagnosis [facility] [address] [id number] May, 2018 Screening for tuberculosis Z 11.1 [facility] [address] [id number] Jan, Penile swelling N48.89 ; Bal anitis N48.1 and BMI 40.0- 44.9, adult Z68.41 [facility] [address] [id number] Jan, Dysfunction of right eustach jason tube H69.81 and Ear pain, right H92.01 [facility] [address] [place] [id number] [place] [phone] Aug, Visit for TB skin test Z11.1 and Screening for tuberculosis Z11.1 [facility] [address] [address] [id number] [place] [id number] Jun, Sinusitis J32.9 and Allergic rhinitis J30.9 [facility] [address] [place] [address] [id number] [place] [phone] Jun, [facility] [address] [facility] [id number] [address] [place] [phone] Jun, [facility] [address] [facility] [id number] [address] [place] [phone] Sep, [facility] [address] [facility] [id number] [address] [place] [phone] Sep, [facility] [address] [facility] [id number] [address] [place] [phone] Apr, [facility] [address] [facility] [id number] [address] [place] [phone] Apr, [facility] [address] [facility] [id number] [address] [place] [phone] Mar, [facility] [address] [facility] [id number] [address] [place] [phone] Mar, IMMUNIZATIONS No Known Immunizations SOCIAL HISTORY Never Assessed 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 [facility] PLAN OF CARE VITAL SIGNS MEDICATIONS Unknown Medications RESULTS No Results PROCEDURES No Known procedures INSTRUCTIONS MEDICATIONS ADMINISTERED No Known Medications MEDICAL (GENERAL) HISTORY Type Description Date Medical History hypertension Medical History obesity Medical History herniated disc Medical History sleep apnea wears CPAP Medical History STATE HEP A (ADULT) DX Surgical History Left ACL 1994 Surgical History Gall bladder 1995
--- OUTSIDE RECORDS SUMMARY | 2019-08-04 15:31 | XMS REPORT ---
Author Author Kaushal ORTIZ Organization [facility] Address [address] [place] [address] Care Team Providers Care Public Relations Studies Director Name Role Phone YOHANA ORTIZ Unavailable PROBLEMS Type Condition ICD9-CM Code YYD30-QV Code Onset Dates Condition S tatus SNOMED Code Problem Other general medical examination for administrative purpo ses V70.3 Active 39561314 Problem STATE HEP A (ADULT) DX V05.3 Active 934141355 ALLERGIES Substance Reaction Event Type Date Status N.K.D.A. Unknown Non Drug Allergy Jan, Unknown SOCIAL HISTORY No smoking Hx information available PLAN OF CARE Activity Details Follow Up prn Reason: VITAL SIGNS Height 68 in 2016-02-03 Weight 330 lbs 2016-02-03 Temperature 98 degrees Fahrenheit 2016-02-03 Heart Rate 72 bpm 2016-02-03 Respiratory Rate 16 2016-02-03 BMI 50.17 kg/m2 2016-02-03 Blood pressure systolic 120 mmHg 2016-02-03 Blood pressure diastolic 72 mmHg 2016-02-03 MEDICATIONS Medication Instructions Dosage Frequency Start Date End Date Duration S tatus Lisinopril 20 mg take 1 tablet (20 mg) by oral route o nce daily Sep, Active RESULTS No Results PROCEDURES Procedure Date Ordered Related Diagnosis Body Site Office Visit, Est Pt., Level 3 Feb 03, 2016 IMMUNIZATIONS No Known Immunizations
--- OUTSIDE RECORDS SUMMARY | 2019-08-04 15:31 | XMS REPORT ---
Author Author Kaushal VELEZ Organization [facility] Address [address] [place] [address] Care Team Providers Care Optometry Assistant Name Role Phone TOMEKAGrant RAHUL Unavailable PROBLEMS Type Condition ICD9-CM Code IPD39-SP Code Onset Dates Condition S tatus SNOMED Code Problem Other obesity due to excess calories E66.09 Active 10925857099045 Problem Penile swelling N48.89 Active 3359 45830 Problem Balanitis N48.1 Active 86810895 Problem Other chronic pain G89.29 Active 8 9881189 Problem Sleep apnea in adult G47.30 Active 94889627 Problem Herniated lumbar disc 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 Active 91241558 Problem Body mass index (BMI) of 40.0-44.9 in adult Z68.41 Active 150256774 Problem Essential hypertension I10 Active 12647756 ALLERGIES No Information ENCOUNTERS Encounter Location Date Diagnosis [facility] [address] [facility] [place] [id number] 20 Apr, 2019 Acute non-recurrent maxillary sinusitis J01.00 ; Pain in right knee M25.561 ; Pain in left knee M25.562 ; Other chronic pain G89.29 ; Pain in unspecified joint M25.50 ; Essential hypertension I10 and Body mass index (BMI) of 40.0-44.9 in adult Z68.41 [facility] [address] [facility] [place] [id number] 10 Apr, 2019 Acute bacterial conjunctivitis of right eye H10.31 [facility] [address] [facility] [place] [address] Feb, Encounter for immunization Z23 [facility] [address] [facility] [place] [id number] May, Screening for tuberculosis Z11.1 [place] [address] [facility] [place] [id number] Jan, Penile swelling N48.89 ; Balanitis N48.1 and BMI 40.0-44.9, adult Z68.41 [place] [address] [facility] [place] [id number] 30 Jan, 2016 Dysfunction of right eustachian tube H69 .81 and Ear pain, right H92.01 [place] [address] [place] [id number] [place] [address] Aug, Visit for TB skin test Z11.1 and Screeni ng for tuberculosis Z11.1 [place] [address] [facility] [place] [id number] 15 Jun, 2015 Sinusitis J32.9 and Allergic rhinitis J3 0.9 [place] [address] [address] Jun, [place] [address] [address] Jun, [place] [address] [address] Sep, [place] [address] [address] Sep, [place] [address] [address] Apr, [place] [address] [address] Apr, [place] [address] [address] Mar, [place] [address] [address] Mar, IMMUNIZATIONS No Known Immunizations SOCIAL HISTORY Never Assessed 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 PLAN OF CARE VITAL SIGNS MEDICATIONS No Known Medications RESULTS No Results PROCEDURES No Known procedures INSTRUCTIONS MEDICATIONS ADMINISTERED No Known Medications MEDICAL (GENERAL) HISTORY Type Description Date Medical History hypertension Medical History obesity Medical History herniated disc Medical History sleep apnea wears CPAP Medical History STATE HEP A (ADULT) DX Surgical History Left ACL 1994 Surgical History Gall bladder 1995
--- OUTSIDE RECORDS SUMMARY | 2019-08-04 15:31 | XMS REPORT ---
Author Author Kaushal Denise [facility] Address [address] [place] [address] Care Team Providers Care Health And Physical Education Professor Name Role Phone Camelia YOHAAN Unavailable PROBLEMS Type Condition ICD9-CM Code ZYI64-DA Code Onset Dates Condition S tatus SNOMED Code Problem Penile swelling N48.89 Active 3359 57294 Problem Other obesity due to excess calories E66.09 Active 68182301603824 Problem Balanitis N48.1 Active 73934826 Problem Herniated lumbar disc 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 Active 57395189 Problem Sleep apnea in adult G47.30 Active 43261663 Problem Essential hypertension I10 Active 93801200 Problem Body mass index (BMI) of 40.0-44.9 in adult Z68.41 Active 868666103 ALLERGIES No Information ENCOUNTERS Encounter Location Date Diagnosis [facility] [address] [id number] May, Screening for tuberculosis Z 11.1 [facility] [address] [place] [id number] [place] [id number] Jan, Penile swelling N48.89 ; Bal anitis N48.1 and BMI 40.0- 44.9, adult Z68.41 [facility] [address] [place] [id number] [place] [id number] Jan, Dysfunction of right eustach jason tube H69.81 and Ear pain, right H92.01 [facility] [address] [facility] [id number] [address] [place] [phone] Aug, Visit for TB skin test Z11.1 and Screening for tuberculosis Z11.1 [facility] [address] [place] [id number] [place] [id number] Jun, Sinusitis J32.9 and Allergic rhinitis J30.9 [facility] [address] [id number] [address] [place] [phone] Jun, [facility] [address] [id number] [address] [place] [phone] Jun, [facility] [address] [facility] [id number] [address] [place] [phone] Sep, [facility] [address] [id number] [address] [place] [phone] Sep, [facility] [address] [facility] [id number] [address] [place] [phone] Apr, [facility] [address] [facility] [id number] [address] [place] [phone] Apr, [facility] [address] [facility] [id number] [address] [place] [phone] Mar, [facility] [address] [facility] [id number] [address] [place] [phone] Mar, IMMUNIZATIONS No Known Immunizations SOCIAL HISTORY Never Assessed 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 TB skin test PLAN OF CARE VITAL SIGNS MEDICATIONS Unknown Medications RESULTS No Results PROCEDURES Procedure Date Ordered Result Body Site TB INTRADERMAL TEST May 10, 2017 INSTRUCTIONS MEDICATIONS ADMINISTERED No Known Medications MEDICAL (GENERAL) HISTORY Type Description Date Medical History hypertension Medical History obesity Medical History herniated disc Medical History sleep apnea wears CPAP Medical History STATE HEP A (ADULT) DX Surgical History Left ACL 1994 Surgical History Gall bladder 1996
--- OUTSIDE RECORDS SUMMARY | 2019-08-04 15:31 | XMS REPORT ---
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 Active 97170982 Problem Body mass index (BMI) of 40.0-44.9 in adult Z68.41 Active 886304313 Problem Essential hypertension I10 Active 17114675 ALLERGIES No Information ENCOUNTERS Encounter Location Date Diagnosis [facility] [address] [id number] May, Screening for tuberculosis Z 11.1 [facility] [address] [place] [id number] [place] [address] [id number] Jan, Penile swelling N48.89 ; Bal anitis N48.1 and BMI 40.0- 44.9, adult Z68.41 [facility] [address] [place] [id number] [place] [address] [id number] Jan, Dysfunction of right eustach jason tube H69.81 and Ear pain, right H92.01 [facility] [address] [facility] [id number] [address] [place] [address] Aug, Visit for TB skin test Z11.1 and Screening for tuberculosis Z11.1 [facility] [address] [place] [id number] [place] [address] [id number] Jun, Sinusitis J32.9 and Allergic rhinitis J30.9 [facility] [address] [id number] [address] [place] [phone] Jun, [facility] [address] [id number] [address] [place] [phone] Jun, [facility] [address] [id number] [address] [place] [address] Sep, [facility] [address] [id number] [address] [place] [address] Sep, [facility] [address] [id number] [address] [place] [address] Apr, [facility] [address] [id number] [address] [place] [phone] Apr, [facility] [address] [id number] [address] [place] [address] Mar, [facility] [address] [id number] [address] [place] [phone] Mar, IMMUNIZATIONS Vaccine Route Administration Date Status HEP B (ADULT) Unknown September 05, 2013 Administered SOCIAL HISTORY Never Assessed 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 PLAN OF CARE VITAL SIGNS Height 68 in 2013-09-05 Weight 338 lbs 2013-09-05 Temperature 97.8 degrees Fahrenheit 2013-09-05 Heart Rate 92 bpm 2013-09-05 Respiratory Rate 16 2013-09-05 Blood pressure systolic 128 mmHg 2013-09-05 Blood pressure diastolic 78 mmHg 2013-09-05 MEDICATIONS Unknown Medications RESULTS No Results PROCEDURES No Known procedures INSTRUCTIONS MEDICATIONS ADMINISTERED No Known Medications MEDICAL (GENERAL) HISTORY Type Description Date Medical History hypertension Medical History obesity Medical History herniated disc Medical History sleep apnea wears CPAP Medical History STATE HEP A (ADULT) DX Surgical History Left ACL 1994 Surgical History Gall bladder 1996
--- OUTSIDE RECORDS SUMMARY | 2019-08-04 15:31 | XMS REPORT ---
Author Author Kaushal ÁLVAREZ Organization [employer] Address Unknown Phone Unavailable Care Team Providers Care Tire Recapper Name Role Phone IGNACIO ÁLVAREZ CP Unavailable Allergies, Adverse Reactions, Alerts Substance Reaction Event Type N.K.D.A. Info Not Available Non Drug Allergy Problems Problem Type Condition Code Onset Dates Condition Statu s Problem STATE HEP A (ADULT) DX V05.3 Activ e Assessment Sinusitis J32.9 Active Problem Other general medical examination for administrative p urposes V70.3 Active Assessment Allergic rhinitis J30.9 Active Medications Medication Code System Code Instructions Start Date End Date Status Dosage PredniSONE [facility] [address]-38 40 mg Orally Once a day June 19, 2015 June 24, 2015 1 tablet Flonase Allergy Relief [facility] [address]-05 50 MCG/ACT Nasall y twice a day June 19, 2015 1 spray in each nost ril Lisinopril [facility] [address]-14 20 mg September 05, 2013 t judi 1 tablet (20 mg) by oral route once daily Procedures Procedure Coding System Code Date Office Visit, Est Pt., Level 3 CPT-4 47778 A pril 2015 Vital Signs Date/Time: June 19, 2015 Temperature 98.1 F Weight 323 lbs Height 68 in Oximetry 98 % Blood Pressure Diastolic 90 mmHg Blood Pressure Systolic 140 mmHg Cardiac Monitoring Heart Rate 64 bpm BMI 49.11 Index Results No Known Results Summary Purpose [employer] Submission
--- OUTSIDE RECORDS SUMMARY | 2019-08-04 15:31 | XMS REPORT ---
Author Author Kaushal Denise [facility] MOBILE VAN Address [address] [place] [address] Care Team Providers Care Production Coordinator Name Role Phone YOHANA Denise Unavailable PROBLEMS Type Condition ICD9-CM Code TAG20-JY Code Onset Dates Condition S tatus SNOMED Code Problem Penile swelling N48.89 Active 3359 75591 Problem Balanitis N48.1 Active 65940418 Problem Other obesity due to excess calories E66.09 Active 26211848919829 Problem Sleep apnea in adult G47.30 Active 59956627 Problem Herniated lumbar disc 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 Active 90749312 Problem Body mass index (BMI) of 40.0-44.9 in adult Z68.41 Active 171777502 Problem Essential hypertension I10 Active 60164806 ALLERGIES No Information ENCOUNTERS Encounter Location Date Diagnosis [place] [address] [address] Feb, Encounter for immunization Z23 [facility] [address] [id number] May, Screening for tuberculosis Z11.1 [place] [id number] [id number] Jan, Penile swelling N48.89 ; Balanitis N48.1 and BMI 40.0-44.9, adult Z68.41 [facility] [address] [id number] Jan, Dysfunction of right eustachian tube H69 .81 and Ear pain, right H92.01 [facility] [address] [address] Aug, Visit for TB skin test Z11.1 and Screeni ng for tuberculosis Z11.1 [facility] [address] [facility] [place] [id number] 15 Jun, 2015 Sinusitis J32.9 and Allergic rhinitis J3 0.9 [facility] [address] [facility] [place] [address] 14 Jun, 2014 [facility] [address] [place] [id number] [place] [address] Jun, [facility] [address] [place] [address] [id number] [place] [address] Sep, [facility] [address] [place] [id number] [place] [address] Sep, [facility] [address] [place] [address] [id number] [place] [address] Apr, [facility] [address] [place] [id number] [place] [address] Apr, [facility] [address] [place] [id number] [place] [address] Mar, [facility] [address] [place] [address] [id number] [place] [address] Mar, IMMUNIZATIONS No Known Immunizations SOCIAL HISTORY Never Assessed 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 PLAN OF CARE VITAL SIGNS MEDICATIONS Unknown [...]
--- OUTSIDE RECORDS SUMMARY | 2019-08-04 15:32 | XMS REPORT | Continuity of Care Document ---
Author Organization Unknown Address Unknown Phone Unavailable Allergies Active Description Code Type Severity Reaction Onset Reported/Identified Relationship to Patient Clinical Status Yes No Known Drug Allergies [id number] Drug Allergy Unknown N/A 09/19/2009 Medications There is no data. Problems Date Dx Coded Attending Type Code Diagnosis Diagnosed By 03/27/2013 CECELIA PANDA DO V05.3 HEP B (ADULT) DX 03/27/2013 YOHANA ORTIZ APRN V05.3 HEP B (ADULT) DX 05/01/2013 CECELIA PANDA DO V05.3 HEP B (ADULT) DX 05/01/2013 CECELIA PANDA DO V05.3 HEP B (ADULT) DX 05/01/2013 YOHANA ORTIZ APRN V05.3 HEP B (ADULT) DX 09/05/2013 YOHANA ORTIZ APRN V70.3 SPORTS PHYSICAL 11/23/2015 Ot 729.5 PAIN IN LIMB 11/24/2015 YAMILKA DANIELLE DO S Ot M25.561 PAIN IN RIGHT KNEE 12/02/2015 YAMILKA DANIELLE DO S Ot M25.561 PAIN IN RIGHT KNEE 08/08/2016 KENNEDI CONNOLLY Ot G47.36 SLEEP RELATED HYPOVENTILATION IN CONDITI 08/08/2016 KENNEDI CONNOLLY Ot I10 ESSENTIAL (PRIMARY) HYPERTENSION 08/08/2016 KENNEDI CONNOLLY Ot R06.83 SNORING 08/08/2016 Ot 729.5 PAIN IN LIMB 08/08/2016 YAMILKA DANIELLE DO S Ot M25.561 PAIN IN RIGHT KNEE 09/29/2016 Ot 729.5 PAIN IN LIMB 09/29/2016 YAMILKA DANIELLE DO S Ot M25.561 PAIN IN RIGHT KNEE 10/03/2016 Ot 729.5 PAIN IN LIMB 10/03/2016 MARY DANIELLE DOLINE S Ot M25.561 PAIN IN RIGHT KNEE 12/01/2016 Ot 729.5 PAIN IN LIMB 12/01/2016 ORENDER DO, YAMILKA S Ot M25.561 PAIN IN RIGHT KNEE 01/30/2017 Ot 729.5 PAIN IN LIMB 01/30/2017 ORENDER DO, YAMILKA S Ot M25.561 PAIN IN RIGHT KNEE 01/30/2017 Ot 729.5 PAIN IN LIMB 01/30/2017 ORENDER DO, YAMILKA S Ot M25.561 PAIN IN RIGHT KNEE 12/22/2017 ORENDER DO, YAMILKA S Ot M25.561 PAIN IN RIGHT KNEE 12/26/2017 ORENDER DO, YAMILKA S Ot M25.561 PAIN IN RIGHT KNEE 01/05/2018 JEISON, OPAL R CONE FORMER Ot M17.12 UNILATERAL PRIMARY OSTEOARTHRITIS, LEFT 01/05/2018 JEISON, OPAL R CONE FORMER Ot Z98.890 OTHER SPECIFIED POSTPROCEDURAL STATES 06/07/2019 ORENDER DO, YAMILKA S Ot M25.561 PAIN IN RIGHT KNEE 06/07/2019 JEISON, OPAL R CONE FORMER Ot M17.12 UNILATERAL PRIMARY OSTEOARTHRITIS, LEFT 06/07/2019 JEISON, OPAL R CONE FORMER Ot Z98.890 OTHER SPECIFIED POSTPROCEDURAL STATES 06/27/2019 W E78.2 Mixe d hyperlipidemia Agustínnder, Yamilka S. 06/27/2019 W I10 Essent ial (primary) hypertension Agustínnder, Yamilka S. 06/27/2019 W R73.9 Hype rglycemia, unspecified Orender, Yamilka S. 08/02/2019 AGUSTÍNNDER DO, YAMILKA S Ot M25.561 PAIN IN RIGHT KNEE 08/02/2019 JEISON, OPAL R CONE FORMER Ot M17.12 UNILATERAL PRIMARY OSTEOARTHRITIS, LEFT 08/02/2019 JEISON, OPAL R CONE FORMER Ot Z98.890 OTHER SPECIFIED POSTPROCEDURAL STATES Procedures There is no data. Results Test Result Range CULTURE, URINE - 01/06/17 10:27 CULTURE, URINE, ROUTINE SEE NOTE NRG CBC w/MANUAL DIFF - 07/30/19 16:31 WHITE BLOOD CELL COUNT 10.6 Thousand/uL 3.8-10.8 RED BLOOD CELL COUNT 4.96 Million/uL 4.2 0-5.80 HEMOGLOBIN 16.3 g/dL 13.2-17.1 HEMATOCRIT 45.8 % 38.5-50.0 MCV 92.3 fL 80.0-100.0 MCH 32.9 pg 27.0-33.0 MCHC 35.6 g/dL 32.0-36.0 RDW 12.7 % 11.0-15.0 PLATELET COUNT 240 Thousand/uL 140-400 MPV 11.1 fL 7.5-12.5 THYROID ANALYZER - 07/30/19 16:31 TSH 3.16 mIU/L 0.40-4.50 DIFFERENTIAL, MANUAL - 07/30/19 16:31 ABSOLUTE NEUTROPHILS 7950 cells/uL 1500- 7800 ABSOLUTE MONOCYTES 530 cells/uL 200-950 ABSOLUTE EOSINOPHILS 0 cells/uL 15-500 ABSOLUTE BASOPHILS 0 cells/uL 0-200 NEUTROPHILS 75 % NRG LYMPHOCYTES 19 % NRG MONOCYTES 5 % NRG EOSINOPHILS 0 % NRG BASOPHILS 0 % NRG ABSOLUTE BAND NEUTROPHILS 106 cells/uL 0 -750 ABSOLUTE LYMPHOCYTES 2014 cells/uL 850-3 900 BAND NEUTROPHILS 1 % NRG PLATELET ESTIMATION ADEQUATE ADEQUATE CBC MORPHOLOGY NORMAL Encounters ACCT No. Visit Date/Time Discharge Status Pt. Type Provider Facility Loc./Unit Complaint [id number] 09/05/2013 13:08:00 09/05/2013 23:59: 59 CLS Outpatient YOHANA ORTIZ APRN [id number] 05/01/2013 12:13:00 05/01/2013 23:59: 59 CLS Outpatient CECELIA PANDA DO [id number] 03/27/2013 10:40:00 03/27/2013 23:59: 59 CLS Outpatient CECELIA PANDA DO [id number] 12/26/2017 09:04:00 018 23:59:59 CLS Outpatient OPAL MCHUGH APRN [facility] RAD LEFT KNEE PAIN M25.562 [id number] 08/08/2016 16:45:00 017 17:25:00 DIS Outpatient KENNEDI CONNOLLY [facility] SLEEP SLEEP RELATED HYPOVENTIALTION G47.36 [id number] 11/23/2015 15:11:00 016 23:59:59 CLS Outpatient ORENDER DO, YAMILKA S [facility] RAD R MEDIAL KNEE P AIN [id number] 08/05/2019 12:30:00 P EN Preadmit ELIAN VELARDE [facility] RAD BONE CYST OF LEFT TIBIA [id number] 09/26/2011 10:57:00 Document Registration [id number] 06/23/2019 14:45:00 06/23/2019 23:59:5 9 [facility] Outpatient Yamilka Danielle [facility] [id number] 07/30/2019 15:40:00 Document Registration [id number] 01/04/2017 10:45:00 Document Registration 02/201701/28/2019 11:09:34 01/28/2019 23:59 :59 CLS Outpatient Yamilka Danielle [id number] 06/27/2019 09:07:46 Document Registration
[2019-08-04 15:38] VITALS: BP 163/94
== END 2019-08-04 15:55 | disposition home or self-care (01) ==
LOC: EDUNIT# 15:23 → ER 15:24
DX: S46.211A Strain of muscle, fascia and tendon of other parts of biceps, right arm, initial encounter (principal); X50.0XXA Overexertion from strenuous movement or load, initial encounter
CPT/HCPCS: 99282

== ENCOUNTER → 2019-08-05 | Outpatient (REF) ==
--- NOTE | 2019-08-05 18:07 | Diagnostic Imaging Report ---
EXAMINATION: Right elbow at 02:05 p.m. INDICATION: Elbow pain. FINDINGS: Three views were obtained. There are no prior studies available for comparison. There is no fracture, dislocation, or acute bony abnormality evident. The elbow joint is well maintained. The soft tissues are unremarkable. The posterior fat-pad is not elevated. IMPRESSION: 1. There is no evidence for an acute bony abnormality. 2. If there is clinical concern regarding a ligamentous or tendinous injury, then MRI would be recommended for further evaluation. Dictated by: Dictated on workstation # [id number]
== END ==
LOC: OCC 13:39
PROVIDERS: ATTEND Nurse Practitioner Family
DX: M25.521 Pain in right elbow (principal)
CPT/HCPCS: 73080

== ENCOUNTER → 2019-08-06 | Outpatient (REF) | LOC: RAD 09:04 | PROVIDERS: ATTEND Nurse Practitioner Family | DX: M25.521 Pain in right elbow (principal) ==

== ENCOUNTER → 2019-10-08 | Outpatient (CLI) | payer BC ==
--- NOTE | 2019-10-08 17:19 | Diagnostic Imaging Report ---
PROCEDURE: MR imaging left lower extremity without contrast. TECHNIQUE: Multiplanar, multisequence non contrast enhanced MR imaging of the left lower extremity was accomplished. INDICATION: Pain and numbness of the left lower leg. COMPARISON: Left knee radiographs of 12/26/2017. FINDINGS: Bones: No abnormal intramedullary or cortical bone marrow edema within the tibia to indicate stress fracture. No marrow replacing process is seen. Partially imaged changes from ACL reconstruction. The exam is not tailored to evaluate integrity of the ACL graft or other potential internal derangement of the knee. Soft tissues: No T2 hyperintense edema like signal within the musculature of the lower leg to indicate muscle strain. No mandeep-fascial fluid. No soft tissue mass. A small amount of subcutaneous T2 hyperintense reticulations may represent edema. IMPRESSION: 1. No stress fracture in the left tibia. 2. Mild subcutaneous edema in left lower leg. No features of muscle strain or tendon tear. Dictated by: Dictated on workstation # [id number]
== END ==
LOC: RAD 15:19
PROVIDERS: ATTEND Nurse Practitioner Family
DX: M85.662 Other cyst of bone, left lower leg (principal); R20.0 Anesthesia of skin; Z98.890 Other specified postprocedural states